=== PATIENT | male | born 1950 | race Two or more races ===

== ENCOUNTER 2022-01-18 18:04 | Inpatient (IN) | payer MEDICARE, OTHER ==
[~2022-01-18] VITALS: Ht 167.6 cm; Wt 62.1 kg
[~2022-01-18 18:04] MED LIST: ALBU18HF2 IH; ATOR20TA PO; FINA5TAB3 PO; FLUT1DIS3 INH; FOLI1TAB16 PO; LACT10SO69 PO; METO50TA16 PO; MIRT-91 PO; MYRBETRIQ PO; OLME1TAB34 PO; QUET50TA PO; RIFA550T PO; SPIR25TA PO; THIA100T13 PO; [UNRECOGNIZED DRUG - CODE] PO
--- NOTE | 2022-01-18 18:14 | NUR ---
TO ER BED 12. BIB PA [facility], SOB, PRODUCTIVE COUGH, SENT TO R/O PNEUMONIA. PT IS ON 5L NC. ATTACHED TO MONITOR. A&OX4. AWAITING MD GARCIA.
--- NOTE | 2022-01-18 18:40 | NUR ---
X RAY AT BEDSIDE
--- NOTE | 2022-01-18 18:43 | NUR ---
GIOVANI (SON) [phone] JD () [phone]
--- NOTE | 2022-01-18 18:44 | NUR ---
IV ESTABLISHED R AC 20G. LABS DRAWN AND COLLECTED AT BEDSIDE.
[2022-01-18 19:04] LABS: CARBON DIOXIDE 25 mmol/L (21-32); CHLORIDE 102 mmol/L (98-107); CREATININE 1.5 mg/dL (0.6-1.3); GLUCOSE 110 mg/dL (74-106); POTASSIUM 4.2 mmol/L (3.5-5.1); SODIUM SERUM 136 mmol/L (136-145); UREA NITROGEN, BLOOD 40 mg/dL (7-18)
--- NOTE | 2022-01-18 19:11 | NUR ---
KADEN COLLECTED AND SENT
[2022-01-18] MEDS ORDERED: NUTR250L50 GT (19:15)
[2022-01-18] MEDS ORDERED: MAGN400O6 GT (19:15)
[2022-01-18] MEDS ORDERED: NA P133E RC (19:15)
[2022-01-18] MEDS ORDERED: ZOLP5TAB2 GT (19:15)
[2022-01-18] MEDS ORDERED: CRAN3875 GT (19:15)
[2022-01-18] MEDS ORDERED: LORA-259 GT (19:15)
[2022-01-18] MEDS ORDERED: VALP250S4 GT (19:15)
[2022-01-18] MEDS ORDERED: SENN-261 GT (19:15)
[2022-01-18] MEDS ORDERED: BUDE180A IH (19:15)
[2022-01-18] MEDS ORDERED: LEVA15HF4 IH ×2 (19:15)
[2022-01-18] MEDS ORDERED: CALC1TAB30 GT (19:15)
[2022-01-18] MEDS ORDERED: DOXA2TAB GT (19:15)
[2022-01-18] MEDS ORDERED: SCOP1PAT11 TD (19:15)
[2022-01-18] MEDS ORDERED: OLAN2.5T3 GT (19:15)
[2022-01-18] MEDS ORDERED: ACET-868 GT (19:15)
[2022-01-18] MEDS ORDERED: LEVE100S GT (19:15)
[2022-01-18] MEDS ORDERED: FURO-145 GT (19:15)
[2022-01-18] MEDS ORDERED: APIX5TAB GT (19:15)
[2022-01-18] MEDS ORDERED: IPRA12.9 IH (19:15)
[2022-01-18] MEDS ORDERED: MULT-447 GT (19:15)
[2022-01-18] MEDS ORDERED: BISA10SU11 RC (19:15)
[2022-01-18] MEDS ORDERED: BUSP5TAB3 GT (19:15)
[2022-01-18] MEDS ORDERED: METO5SOL2 GT (19:15)
[2022-01-18] MEDS ORDERED: METH10TA80 GT (19:15)
[2022-01-18 19:17] LABS: ALANINE AMINOTRANSFERASE 26 U/L (12-78); ALBUMIN 2.6 g/dL (3.4-5.0); ALKALINE PHOSPHATASE 116 U/L (46-116); ASPARTATE AMINOTRANSFERASE 25 U/L (15-37); BILIRUBIN,DIRECT 0.1 mg/dL (0.0-0.2); BILIRUBIN,TOTAL 0.2 mg/dL (0.2-1.0); TOTAL PROTEIN, SERUM 9.4 g/dL (6.4-8.2)
[2022-01-18] MEDS ORDERED: CEFTRIAXONE 1GM BAG (ER ONLY) 1 GM/50 ML PIGGYBACK IV ONE (19:30)
[2022-01-18] MEDS ORDERED: AZITHROMYCIN 500 MG in IV D5W 250 ML IV ONE (19:30)
[2022-01-18 19:50] LABS: ABG BASE EXCESS 0.5 mmol/L; ABG PCO2 28.5 mmHg (35.0-45.0); ABG PH 7.515 (7.350-7.450); ABG PO2 73.3 mmHg (75.0-100.0); SITE, ABG Right Radial
[2022-01-18 19:51] LABS: COHb 0.7 % (0.5-1.5); O2Hb 95.6 % (94.0-97.0); VENT MODE, BG 5L NASAL CANNULA
[2022-01-18 19:53] LABS: HEMATOCRIT 35 % (39-51); HEMOGLOBIN 11.6 g/dL (13.5-17.5); LYMPHOCYTES # (AUTO) 0.9 K/uL (0.8-4.8); LYMPHOCYTES % (AUTO) 5.2 % (20.0-44.0); MEAN CORPUSCULAR HGB CONC 33 g/dl (31.0-36.0); MEAN CORPUSCULAR VOLUME 90 fL (80-96); MONOCYTES # (AUTO) 1.4 K/uL (0.1-1.30); MONOCYTES % (AUTO) 7.7 % (2.0-12.0); NEUTROPHILS # (AUTO) 15.3 K/uL (1.8-8.9); NEUTROPHILS % (AUTO) 87.1 % (43.0-81.0); PLATELET COUNT (AUTO) 382 K/uL (150-450); RED BLOOD CELL COUNT(AUTO) 3.91 MIL/uL (4.5-6.0); WHITE BLOOD COUNT (AUTO) 17.6 K/uL (4.3-11.0)
--- NOTE | 2022-01-18 19:54 | NUR ---
MRSA SWAB COLLECTED AND SENT TO LAB. PATIENT'S BELONGINGS LIST DONE.
[2022-01-18] MEDS ORDERED: LORAZEPAM INJ 2 MG/ML VIAL IV ONE (20:00)
[2022-01-18] MEDS ORDERED: CEFTRIAXONE 1GM BAG (ER ONLY) 50 ML IV ONE (20:30)
[2022-01-18] MEDS ORDERED: AZITHROMYCIN 500 MG VIAL ONE (20:31)
[2022-01-18] MEDS ORDERED: MAG HYDROX/AL HYDROX/SIMETH 30 ML UDC GT PRN (21:30)
[2022-01-18] MEDS ORDERED: MAGNESIUM HYDROXIDE 30 ML UDC GT PRN (21:30)
[2022-01-18] MEDS ORDERED: MAGNESIUM HYDROXIDE 30 ML UDC PO PRN (21:30)
[2022-01-18] MEDS ORDERED: IV NS 0.9% 1,000 ML IV PRN (21:30)
[2022-01-18] MEDS ORDERED: BISACODYL SUPP (10 MG) 10 MG/SUPP.RECT SUPP.RECT RC PRN (21:30)
[2022-01-18] MEDS ORDERED: NA PHOS,M-B/NA PHOS,DI-BA 1 EA ENEMA RC PRN (21:30)
[2022-01-18] MEDS ORDERED: JEVITY 1.2 CAL 1,000 ML BOTTLE GT PRN (21:30)
[2022-01-18] MEDS ORDERED: ZOLPIDEM TARTRATE 5 MG TABLET PO PRN (21:30)
[2022-01-18] MEDS ORDERED: ACETAMINOPHEN 325 MG TABLET PO PRN (21:30)
[2022-01-18] MEDS ORDERED: ONDANSETRON HCL/PF 4 MG/2 ML VIAL IVP PRN (21:30)
[2022-01-18] MEDS ORDERED: Z GUARD REMEDY 4 OZ OINT TP PRN (21:30)
[2022-01-18] MEDS ORDERED: ACETAMINOPHEN 325 MG TABLET MC PRN (21:30)
[2022-01-18] MEDS ORDERED: ZOLPIDEM TARTRATE 5 MG TABLET GT PRN (21:30)
--- NOTE | 2022-01-18 22:02 | NUR ---
REPORT GIVEN TO 3W RNCECELIA
--- NOTE | 2022-01-18 22:20 | NUR ---
PATIENT BEING TRANSFERRED TO [facility]
[2022-01-18 22:30] VITALS: BP 124/73
[2022-01-19] VITALS: BP 105/62
[2022-01-19] MEDS ORDERED: PIPERACILLIN /TAZOBACTAM 3.375 G in IV D5W 50 ML IV SCH ×2
[2022-01-19] MEDS ORDERED: PIPERACILLIN /TAZOBACTAM 3.375 G VIAL IV ONE (00:06)
[2022-01-19] MEDS: ZOSYN IVPB 3.375 G in IV D5W 50ml IV SCH ×2 (00:40→05:30)
[2022-01-19] MEDS ORDERED: IPRATROPIUM NEB FS 0.5 MG/2.5 ML AMPUL.NEB NEB SCH (01:30)
[2022-01-19] MEDS ORDERED: FUROSEMIDE 20 MG/2 ML VIAL IV ONE (02:00)
[2022-01-19] MEDS ORDERED: VANCOMYCIN 1.25 GM in IV D5W 250 ML IV ONE (03:00)
[2022-01-19] MEDS ORDERED: VANCOMYCIN 1 GM VIAL ONE ×2 (03:20→03:22)
[2022-01-19 03:43] VITALS: BP 98/56
[2022-01-19 04:00] VITALS: BP 98/56
--- NOTE | 2022-01-19 04:13 | NUR ---
CLOSING NOTES: ADMITTED 01/18/22 @ 22:20 FROM THE ER EYES OPEN NON VERBAL MAKING GRINTING SOUNDS NON FOLLOWING DIRECTIONS DIAPER ON INCONTINENT URINE, WITH THE [facility]IST [facility] WORKER CLEANED AND REDIAPERED SKIN INTACT HEEL CLEAR SCRUM CLEAR ALL CHASTITY AREAS CLEAR PRODUCTIVE COUGH STRONG COUGH 02 2LITERS N/C SATS 96% NOTED LEGS RIDGET AND BENT CLOSE TO HIS BODY ASPIRATION PRECAUTIONS HOB ELEVATED PEG FDG STARTED NO EDEMA
[2022-01-19] MEDS: METOCLOPRAMIDE HCL 10 MG/10 ML UDC GT SCH ×3 (05:03→21:43)
[2022-01-19] MEDS: LEVALBUTEROL TARTRATE XX SCH ×2 (05:30)
[2022-01-19 07:05] LABS: CALCIUM, SERUM 8.6 mg/dL (8.5-10.1); CARBON DIOXIDE 24 mmol/L (21-32); CHLORIDE 103 mmol/L (98-107); CREATININE 1.6 mg/dL (0.6-1.3); GLUCOSE 118 mg/dL (74-106); MAGNESIUM 2.1 mg/dL (1.8-2.4); PHOSPHORUS 2.5 mg/dL (2.5-4.9); POTASSIUM 3.5 mmol/L (3.5-5.1); SODIUM SERUM 138 mmol/L (136-145); UREA NITROGEN, BLOOD 38 mg/dL (7-18)
[2022-01-19 07:07] LABS: BASOPHILS % (AUTO) 0.3 % (0.0-2.0); EOSINOPHILS % (AUTO) 0.1 % (0.0-6.0); HEMATOCRIT 33 % (39-51); HEMOGLOBIN 10.8 g/dL (13.5-17.5); LYMPHOCYTES # (AUTO) 2.2 K/uL (0.8-4.8); MEAN CORPUSCULAR HGB CONC 33 g/dl (31.0-36.0); MEAN CORPUSCULAR VOLUME 91 fL (80-96); MONOCYTES # (AUTO) 0.9 K/uL (0.1-1.30); MONOCYTES % (AUTO) 6.2 % (2.0-12.0); NEUTROPHILS # (AUTO) 10.9 K/uL (1.8-8.9); NEUTROPHILS % (AUTO) 77.4 % (43.0-81.0); PLATELET COUNT (AUTO) 361 K/uL (150-450); RED BLOOD CELL COUNT(AUTO) 3.58 MIL/uL (4.5-6.0)
--- NOTE | 2022-01-19 07:10 | NUR ---
SLATE ROOFER HELPER OPENING NOTE: RECEIVED PATIENT IN BED, AWAKE, A/O X 1. ABLE TO MAKE SIMPLE NEEDS KNOWN. NO COMPLAINTS OF PAIN/DISCOMFORT AT THIS TIME. ON 2L NC, BREATHING EVEN AND UNLABORED.ON TELE MONITOR W/ CURRENT READING OF NSR, BORDERLINE 1ST DEGREE AV BLOCK WITH PAC'S AND HR OF 88 BPM. MD AWARE. PT. HAS PEG TUBE LOCATED IN UPPER MID ABDOMEN WITH JEVITY 1.2 RUNNING AT 60 ML/HR. 5 ML OF RESIDUAL NOTED. FLUSHING WELL. DRESSING C/D/I. IV ACCESS ON RIGHT AC #20G, PATENT AND FLUSHING WELL, SALINE LOCKED. NO S/S OF PHLEBITIS OR INFILTRATION. PT. UNABLE TO AMBULATE AND ON BED REST. INCONTINENT AND ON DIAPER. SKIN INTACT. SAFETY, PRESSURE ULCER, ASPIRATION AND FALL PRECAUTIONS IN PLACE: BED LOCKED AND IN LOWEST POSITION, BED ALARM ON, HOB ELEVATED AT 40 DEGREES, CALL LIGHT AND BELONGINGS WITHIN EASY REACH, WILL TURN AND REPOSITION AT LEAST Q2H. WILL CONTINUE TO MONITOR PT. FOR ANY CHANGES.
[2022-01-19] MEDS: ALBUTEROL FS 2.5 MG/3 ML VIAL.NEB NEB SCH ×3 (07:35→19:55)
[2022-01-19] MEDS ORDERED: ALBUTEROL FS 2.5 MG/0.5 ML VIAL.NEB NEB SCH (07:35)
[2022-01-19] MEDS: IPRATROPIUM NEB FS 0.5 MG/2.5 ML AMPUL.NEB NEB SCH ×3 (07:35→19:55)
[2022-01-19 08:00] VITALS: BP 108/68
[2022-01-19] MEDS ORDERED: ALBUTEROL FS 2.5 MG/0.5 ML VIAL.NEB IH PRN (08:00)
[2022-01-19] MEDS ORDERED: Medication Not On Formulary EA (Cran/Vitc/Mannose/Inulin/Brom (Uti-Stat Liquid) 3,875 MG GT SCH ×2 (09:00)
[2022-01-19] MEDS: SCOPOLAMINE PATCH 1 MG/72HR TD SCH (09:11)
[2022-01-19] MEDS: CALCIUM CARB 600MG /VIT D 1 EACH TABLET GT SCH (09:12)
[2022-01-19] MEDS: METHIMAZOLE (5MG) 5 MG TABLET GT SCH ×2 (09:12→18:17)
[2022-01-19] MEDS: MULTIVIT W/MINERALS 1 TAB TABLET GT SCH (09:12)
[2022-01-19] MEDS: VALPROIC ACID 250 MG/5 ML UDC GT SCH ×3 (09:12→18:17)
[2022-01-19] MEDS: SENNOSIDES 8.6 MG TABLET GT SCH ×2 (09:13→18:18)
[2022-01-19] MEDS: LEVETIRACETAM SOL (5 ML) 100 MG/ML UDC GT SCH ×2 (09:13→18:17)
[2022-01-19] MEDS: OLANZAPINE 2.5 MG TABLET GT SCH ×3 (09:13→18:18)
[2022-01-19] MEDS: APIXABAN 5 MG TABLET GT SCH ×2 (09:14→18:18)
[2022-01-19] MEDS: busPIRone 5 MG TABLET GT SCH ×3 (09:14→18:18)
[2022-01-19] MEDS: PIPERACILLIN /TAZOBACTAM 3.375 G in IV D5W 100 ML IV SCH ×2 (10:35→16:17)
[2022-01-19 11:19] LABS: BILIRUBIN,URINE NEGATIVE (NEGATIVE); COLOR,URINE YELLOW (YELLOW); LEUKOCYTE ESTERASE ,URINE TRACE (NEGATIVE); NITRITE, URINE NEGATIVE (NEGATIVE); PH,URINE 7.5 (5.0-8.0); PROTEIN,URINE NEGATIVE (NEGATIVE); UGLUCOSE NEGATIVE (NEGATIVE); UROBILINOGEN,URINE 0.2 EU/dL (0.2)
[2022-01-19 11:31] LABS: BACTERIA,URINE None seen /HPF (None Seen); RBC,URINE 0-2 /HPF (0-2); SQUAMOUS EPITHELIAL CELL,UR Rare /HPF (None Seen)
--- NOTE | 2022-01-19 13:45 | NUR ---
MS RN NOTE: PT. PICKED UP BY [employer] [facility] JUNIOR FOR RIGHT ARM FISTULA PLACEMENT BY DR. WILSON. BP 104/54; MS - 66; R - 18 BPM; SPO2 - 99% ON 2L NC; TEMP - 98.1 F; LAST BG - 102 MG/DL. Addendum: 01/19/22 at 1443 by ADAM ONTIVEROS RN PLS. DISREGARD THIS NOTE. THIS IS FOR ANOTHER PT.
[2022-01-19 16:10] VITALS: BP 99/56
--- NOTE | 2022-01-19 16:31 | NUR ---
RT Breathing tx. not given. Pt was asleep @ 0735
[2022-01-19] MEDS: BUDESONIDE RESPULE INH 0.5 MG/2 ML AMPUL.NEB NEB SCH (17:59)
[2022-01-19] MEDS: JEVITY 1.2 CAL 1,000 ML BOTTLE GT PRN (18:58)
--- NOTE | 2022-01-19 19:17 | NUR ---
MS RN CLOSING NOTE: PATIENT REMAINS IN BED, AWAKE, A/O X 1. ABLE TO VERBALIZE SIMPLE NEEDS KNOWN. NO COMPLAINTS OF PAIN/DISCOMFORT AT THIS TIME. ON 2L NC, WITH NO S/S OF RESPIRATORY DISTRESS. PT. HAS PEG TUBE LOCATED IN UPPER MID ABDOMEN WITH JEVITY 1.2 RUNNING AT 60 ML/HR. 3 ML OF RESIDUAL NOTED AT THIS TIME. FLUSHING WELL. DRESSING C/D/I. IV ACCESS ON RIGHT FA #22G, PATENT AND FLUSHING WELL, ZOSYN STILL RUNNING AT 25 ML/HR. NEW IV LINE WRAPPED IN KERLIX. PT. WAS ALSO ON MITTENS D/T CONFUSION AND PULLING HIS IV LINE. ALL LESS RESTRICTIVE MEASURES WERE TRIED BUT PT. STILL TRIES TO PULL OUT HIS IV. RECHECKING TISSUE PERFUSION AT LEAST Q2H. NO S/S OF PHLEBITIS OR INFILTRATION ON IV SITE NOTED. PT. UNABLE TO AMBULATE AND ON BED REST. INCONTINENT AND ON WATER-RESISTANT PADS. SKIN INTACT AND CLEANED PRN. SAFETY, PRESSURE ULCER, ASPIRATION AND FALL PRECAUTIONS MAINTAINED: BED LOCKED AND IN LOWEST POSITION, BED ALARM ON, HOB ELEVATED AT 40 DEGREES, CALL LIGHT AND BELONGINGS WITHIN EASY REACH, TURNED AND REPOSITIONED Q2H. WILL ENDORSE CONTINUITY OF CARE TO TILE HELPER RN.
[2022-01-19 20:00] VITALS: BP 106/73
--- NOTE | 2022-01-19 20:51 | NUR ---
MS RN OPENING NOTE PATIENT AWAKE IN BED, A/O X 1, CONFUSED. PT STABLE ON 2 LPM OF OXYGEN VIA NASAL CANNULA, NO S/S OF RESPIRATORY DISTRESS, PT HAS DRY COUGH. PT HAS PEG TUBE LOCATED IN UPPER MID ABDOMEN WITH JEVITY 1.2 RUNNING AT 60 ML/HR. IV ACCESS ON RIGHT FA #22G, PATENT AND FLUSHING WELL, INFUSING ZOSYN AT 25 ML/HR, IV LINE WRAPPED IN KERLIX. PT HAS ON MITTENS D/T CONFUSION AND PULLING HIS IV LINE. PT. SAFETY MEASURES IN PLACE: BED LOCKED IN LOWEST POSITION, BED ALARM ON, HOB ELEVATED AT 40 DEGREES, SIDE RAILS UP X 3, CALL LIGHT AND BELONGINGS WITHIN EASY REACH. WILL CONTINUE TO MONITOR
[2022-01-19] MEDS: DOXAZOSIN MESYLATE (1 MG) 1 MG TABLET GT SCH (21:44)
[2022-01-20] MEDS: PIPERACILLIN /TAZOBACTAM 3.375 G in IV D5W 100 ML IV SCH ×3 (00:31→17:24)
[2022-01-20] MEDS: LORAZEPAM 1 MG TABLET GT PRN ×2 (03:41→09:32)
--- NOTE | 2022-01-20 03:45 | NUR ---
MS RN NOTE PATIENT RESTLESS, HASN'T SLEPT ALL NIGHT, MOVING A LOT IN BED, YELLING OUT. ATIVAN 0.5 MG GIVEN VIA GTUBE, VITAL SIGNS WNL. WILL CONTINUE TO MONITOR PATIENT
[2022-01-20 03:47] VITALS: BP 126/78
[2022-01-20] MEDS: VANCOMYCIN 1 GM in IV D5W 250 ML IV SCH (03:57)
[2022-01-20] MEDS: METOCLOPRAMIDE HCL 10 MG/10 ML UDC GT SCH ×3 (05:50→21:08)
[2022-01-20 06:54] LABS: BASOPHILS # (AUTO) 0.1 K/uL (0.0-0.2); BASOPHILS % (AUTO) 0.7 % (0.0-2.0); EOSINOPHILS % (AUTO) 0.2 % (0.0-6.0); HEMATOCRIT 32 % (39-51); HEMOGLOBIN 10.6 g/dL (13.5-17.5); LYMPHOCYTES # (AUTO) 0.6 K/uL (0.8-4.8); LYMPHOCYTES % (AUTO) 6.8 % (20.0-44.0); MEAN CORPUSCULAR HGB CONC 34 g/dl (31.0-36.0); MEAN CORPUSCULAR VOLUME 90 fL (80-96); MONOCYTES # (AUTO) 0.4 K/uL (0.1-1.30); MONOCYTES % (AUTO) 4.9 % (2.0-12.0); NEUTROPHILS # (AUTO) 7.5 K/uL (1.8-8.9); NEUTROPHILS % (AUTO) 87.4 % (43.0-81.0); PLATELET COUNT (AUTO) 329 K/uL (150-450); RED BLOOD CELL COUNT(AUTO) 3.52 MIL/uL (4.5-6.0); WHITE BLOOD COUNT (AUTO) 8.6 K/uL (4.3-11.0)
--- NOTE | 2022-01-20 07:10 | NUR ---
ms rn received on bed,sleeping,not in any form of distress, respirations even and unlabored,no sob noted, lungs are clear.abdomen soft,positive bowel sounds,gtube intact w/ feeding,jevity at 60ml/hour, toleated well. w/o residual, mittens on bilateral arms for safety,repositioned for comfort,will monitor patient.
[2022-01-20 07:20] LABS: CALCIUM, SERUM 8.1 mg/dL (8.5-10.1); CARBON DIOXIDE 26 mmol/L (21-32); CHLORIDE 105 mmol/L (98-107); CREATININE 1.7 mg/dL (0.6-1.3); GLUCOSE 120 mg/dL (74-106); MAGNESIUM 1.9 mg/dL (1.8-2.4); PHOSPHORUS 2.3 mg/dL (2.5-4.9); POTASSIUM 3.7 mmol/L (3.5-5.1); SODIUM SERUM 139 mmol/L (136-145); UREA NITROGEN, BLOOD 36 mg/dL (7-18)
[2022-01-20] MEDS: ALBUTEROL FS 2.5 MG/3 ML VIAL.NEB NEB SCH ×3 (07:22→20:03)
[2022-01-20] MEDS: IPRATROPIUM NEB FS 0.5 MG/2.5 ML AMPUL.NEB NEB SCH ×3 (07:22→20:03)
--- NOTE | 2022-01-20 07:37 | NUR ---
MS RN CLOSING NOTE PATIENT SLEEPING IN BED, A/O X 1, CONFUSED. PT STABLE ON 2 LPM OF OXYGEN VIA NASAL CANNULA, NO S/S OF RESPIRATORY DISTRESS, PT COUGHING A LOT THROUGHOUT SHIFT, SUCTIONED PRN. PT HAS G TUBE WITH JEVITY 1.2 RUNNING AT 60 ML/HR. IV ACCESS ON RIGHT FA #22G INTACT AND SALINE LOCKED, IV LINE WRAPPED IN KERLIX. PT HAS BILATERAL MITTENS D/T CONFUSION AND PULLING ON IV LINES. MEDICATIONS GIVEN ORDERED, PT NEEDS MET THROUGHOUT SHIFT, PATIENT TURNED Q2H, HYGIENE CARE PROVIDED. SAFETY MEASURES IN PLACE: BED LOCKED IN LOWEST POSITION, BED ALARM ON, HOB ELEVATED AT 40 DEGREES, SIDE RAILS UP X 3, CALL LIGHT WITHIN EASY REACH. ENDORSED TO DAY SHIFT NURSE FOR CONTINUITY OF CARE
--- NOTE | 2022-01-20 09:00 | NUR ---
ms rn due meds given via g tube,tolerated w/o residual.
[2022-01-20] MEDS: SENNOSIDES 8.6 MG TABLET GT SCH ×2 (09:13→17:31)
[2022-01-20] MEDS: OLANZAPINE 2.5 MG TABLET GT SCH ×3 (09:14→17:31)
[2022-01-20] MEDS: VALPROIC ACID 250 MG/5 ML UDC GT SCH ×3 (09:14→17:31)
[2022-01-20] MEDS: METHIMAZOLE (5MG) 5 MG TABLET GT SCH ×2 (09:14→17:31)
[2022-01-20] MEDS: LEVETIRACETAM SOL (5 ML) 100 MG/ML UDC GT SCH ×2 (09:14→17:31)
[2022-01-20] MEDS: MULTIVIT W/MINERALS 1 TAB TABLET GT SCH (09:14)
[2022-01-20] MEDS: CALCIUM CARB 600MG /VIT D 1 EACH TABLET GT SCH (09:32)
[2022-01-20] MEDS: busPIRone 5 MG TABLET GT SCH ×3 (09:32→17:31)
[2022-01-20] MEDS: APIXABAN 5 MG TABLET GT SCH ×2 (09:33→17:32)
[2022-01-20] MEDS: BUDESONIDE RESPULE INH 0.5 MG/2 ML AMPUL.NEB NEB SCH ×2 (11:08→16:27)
--- NOTE | 2022-01-20 15:00 | NUR ---
ms rn cannot do ct abdomen,patient is uncooperative.
[2022-01-20] MEDS: ACETYLCYSTEINE 10% SOLN 400 MG/4 ML VIAL NEB SCH (16:27)
[2022-01-20] MEDS ORDERED: NEUTRA PHOS 1 POWD.PACKET GT ONE (17:00)
--- NOTE | 2022-01-20 18:13 | NUR ---
ms rn on bed, all needs attended.no distress noted.
--- NOTE | 2022-01-20 19:33 | NUR ---
RN OPENING NOTE PATIENT AWAKE IN BED. A/OX1. NO S/S OF DISTRESS, BREATHING W/O DIFFICULTY ON 2L NC. RFA #22 SL INTACT AND PATENT. JEVITY 1.2 @ 60ML/HR. SAFETY MEASURES IN PLACE: BED LOCKED AND AT LOWEST POSITION, RAILS UP X2, CALL DUNN WITHIN REACH. WILL CONTINUE TO MONITOR PATIENT.
[2022-01-20] MEDS ORDERED: IV NS 0.9% 1,000 ML IV ONE (21:00)
[2022-01-20] MEDS: DOXAZOSIN MESYLATE (1 MG) 1 MG TABLET GT SCH (21:08)
[2022-01-21] MEDS: ACETYLCYSTEINE 10% SOLN 400 MG/4 ML VIAL NEB SCH ×4 (00:07→23:35)
[2022-01-21] MEDS: PIPERACILLIN /TAZOBACTAM 3.375 G in IV D5W 100 ML IV SCH ×4 (00:47→23:46)
[2022-01-21] MEDS: VANCOMYCIN 1 GM in IV D5W 250 ML IV SCH (03:31)
[2022-01-21] MEDS: METOCLOPRAMIDE HCL 10 MG/10 ML UDC GT SCH ×3 (05:22→21:39)
[2022-01-21 06:29] LABS: BASOPHILS # (AUTO) 0.1 K/uL (0.0-0.2); BASOPHILS % (AUTO) 0.8 % (0.0-2.0); EOSINOPHILS % (AUTO) 1.2 % (0.0-6.0); HEMATOCRIT 33 % (39-51); HEMOGLOBIN 10.8 g/dL (13.5-17.5); LYMPHOCYTES # (AUTO) 0.8 K/uL (0.8-4.8); LYMPHOCYTES % (AUTO) 11.1 % (20.0-44.0); MEAN CORPUSCULAR HGB CONC 33 g/dl (31.0-36.0); MEAN CORPUSCULAR VOLUME 90 fL (80-96); MONOCYTES # (AUTO) 0.4 K/uL (0.1-1.30); MONOCYTES % (AUTO) 5.8 % (2.0-12.0); NEUTROPHILS # (AUTO) 6.1 K/uL (1.8-8.9); NEUTROPHILS % (AUTO) 81.1 % (43.0-81.0); PLATELET COUNT (AUTO) 333 K/uL (150-450); RED BLOOD CELL COUNT(AUTO) 3.64 MIL/uL (4.5-6.0); WHITE BLOOD COUNT (AUTO) 7.5 K/uL (4.3-11.0)
--- NOTE | 2022-01-21 06:42 | NUR ---
RN CLOSING NOTE PATIENT ASLEEP IN BED. A/OX1. NO S/S OF DISTRESS, BREATHING W/O DIFFICULTY ON 2L NC. RFA #22 INTACT AND PATENT W/ NS 70ML/HR. JEVITY 1.2 @ 60ML/HR. SAFETY MEASURES IN PLACE: BED LOCKED AND AT LOWEST POSITION, RAILS UP X2, CALL DUNN WITHIN REACH. WILL ENDORSE TO NEXT SHIFT FOR MAKENNA.
--- NOTE | 2022-01-21 07:15 | NUR ---
ms rn received on bed, sleeping,not in any form of distress, respirations even and unlabored,no sob noted, lungs are clear,abdomen soft,positive bowel sounds,denies pain at this time, will monitor patient.
[2022-01-21 07:21] LABS: CARBON DIOXIDE 24 mmol/L (21-32); CHLORIDE 105 mmol/L (98-107); CREATININE 1.6 mg/dL (0.6-1.3); GLUCOSE 162 mg/dL (74-106); PHOSPHORUS 3.3 mg/dL (2.5-4.9); POTASSIUM 3.9 mmol/L (3.5-5.1); SODIUM SERUM 139 mmol/L (136-145); UREA NITROGEN, BLOOD 29 mg/dL (7-18)
[2022-01-21] MEDS: IPRATROPIUM NEB FS 0.5 MG/2.5 ML AMPUL.NEB NEB SCH ×3 (07:35→19:52)
[2022-01-21] MEDS: ALBUTEROL FS 2.5 MG/3 ML VIAL.NEB NEB SCH ×3 (07:35→19:52)
[2022-01-21 08:00] VITALS: BP 125/75
--- NOTE | 2022-01-21 08:00 | NUR ---
ms rn g tube intact,running at60ml/hour,tolerated w/o residual.
[2022-01-21] MEDS: LEVETIRACETAM SOL (5 ML) 100 MG/ML UDC GT SCH ×2 (09:42→16:57)
[2022-01-21] MEDS: MULTIVIT W/MINERALS 1 TAB TABLET GT SCH (09:42)
[2022-01-21] MEDS: VALPROIC ACID 250 MG/5 ML UDC GT SCH ×3 (09:42→16:57)
[2022-01-21] MEDS: OLANZAPINE 2.5 MG TABLET GT SCH ×3 (09:42→16:58)
[2022-01-21] MEDS: METHIMAZOLE (5MG) 5 MG TABLET GT SCH ×2 (09:42→16:57)
[2022-01-21] MEDS: busPIRone 5 MG TABLET GT SCH ×3 (09:43→16:58)
[2022-01-21] MEDS: SENNOSIDES 8.6 MG TABLET GT SCH ×2 (09:43→16:58)
[2022-01-21] MEDS: CALCIUM CARB 600MG /VIT D 1 EACH TABLET GT SCH (09:43)
[2022-01-21] MEDS: BUDESONIDE RESPULE INH 0.5 MG/2 ML AMPUL.NEB NEB SCH ×2 (09:44→16:44)
[2022-01-21] MEDS: APIXABAN 5 MG TABLET GT SCH ×2 (09:46→17:03)
[2022-01-21] MEDS: JEVITY 1.2 CAL 1,000 ML BOTTLE GT PRN (14:13)
[2022-01-21 16:00] VITALS: BP 142/58
--- NOTE | 2022-01-21 16:59 | NUR ---
RT NOTE PATIENT NT SUCTIONED. SUCTIONED LARGE AMOUNTS OF WHITE/YELLOW SECRETIONS. NO SOB NOTED AT THIS TIME. WILL CONTINUE TO MONITOR.
--- NOTE | 2022-01-21 18:58 | NUR ---
ms rn on bed,no distress noted,all needs attended.
--- NOTE | 2022-01-21 19:45 | NUR ---
RN OPENING NOTES RECEIVED PT IN BED, ASLEEP, AWAKENS TO TACTILE STIMULI. AOx1. ON NC 2LPM AND TOLERATING WELL. NO SOB NOTED. NO S/SX OF RESPIRATORY DISTRESS NOTED. IV ACCESS IN RFA #22H. IV IS INTACT, PATENT, AND FLUSHING WELL. G-TUBE WITH JEVITY 1.2 @ 60 ML/HR SAFETY PRECAUTIONS IN PLACE: BED IN LOWEST, LOCKED POSITION, SIDERAILS UPx2, AND BRAKES ON. TABLE AND CALL LIGHT WITHIN REACH. WILL CONTINUE TO MONITOR.
[2022-01-21 20:00] VITALS: BP 110/63
[2022-01-21] MEDS: DOXAZOSIN MESYLATE (1 MG) 1 MG TABLET GT SCH (21:18)
--- NOTE | 2022-01-21 22:07 | NUR ---
RT Pt recvd awake on 3 lpm NC, neb tx given and nickie well, no SOB or respiratory distress noted at this time.
[2022-01-22] MEDS: VANCOMYCIN 1 GM in IV D5W 250 ML IV SCH (03:18)
[2022-01-22] MEDS: METOCLOPRAMIDE HCL 10 MG/10 ML UDC GT SCH ×3 (05:16→20:53)
[2022-01-22] MEDS: JEVITY 1.2 CAL 1,000 ML BOTTLE GT PRN (06:35)
[2022-01-22 06:43] LABS: BASOPHILS % (AUTO) 0.7 % (0.0-2.0); CALCIUM, SERUM 7.9 mg/dL (8.5-10.1); CARBON DIOXIDE 27 mmol/L (21-32); CHLORIDE 104 mmol/L (98-107); CREATININE 1.5 mg/dL (0.6-1.3); EOSINOPHILS % (AUTO) 5.9 % (0.0-6.0); GLUCOSE 157 mg/dL (74-106); HEMATOCRIT 30 % (39-51); HEMOGLOBIN 10.2 g/dL (13.5-17.5); LYMPHOCYTES # (AUTO) 1.3 K/uL (0.8-4.8); LYMPHOCYTES % (AUTO) 16.8 % (20.0-44.0); MEAN CORPUSCULAR HGB CONC 34 g/dl (31.0-36.0); MEAN CORPUSCULAR VOLUME 90 fL (80-96); MONOCYTES # (AUTO) 0.6 K/uL (0.1-1.30); MONOCYTES % (AUTO) 7.9 % (2.0-12.0); NEUTROPHILS # (AUTO) 5.1 K/uL (1.8-8.9); NEUTROPHILS % (AUTO) 68.7 % (43.0-81.0); PHOSPHORUS 3.2 mg/dL (2.5-4.9); PLATELET COUNT (AUTO) 328 K/uL (150-450); POTASSIUM 3.9 mmol/L (3.5-5.1); RED BLOOD CELL COUNT(AUTO) 3.38 MIL/uL (4.5-6.0); SODIUM SERUM 138 mmol/L (136-145); UREA NITROGEN, BLOOD 27 mg/dL (7-18); WHITE BLOOD COUNT (AUTO) 7.5 K/uL (4.3-11.0)
--- NOTE | 2022-01-22 06:48 | NUR ---
RN CLOSING NOTES PT IN BED, ASLEEP, AWAKENS TO TACTILE STIMULI. AOx2. ON NC 2LPM AND TOLERATING WELL. NO SOB NOTED. NO S/SX OF RESPIRATORY DISTRESS NOTED. IV ACCESS IN RFA #22G. IV IS INTACT, PATENT, AND FLUSHING WELL. G-TUBE WITH JEVITY 1.2 @ 60 ML/HR. ALL ORDERS CARRIED OUT. ALL NEEDS MET. PT KEPT CLEAN AND DRY. SAFETY PRECAUTIONS IN PLACE: BED IN LOWEST, LOCKED POSITION, SIDERAILS UPx2, AND BRAKES ON. TABLE AND CALL LIGHT WITHIN REACH. WILL ENDORSE TO ONCOMING SHIFT FOR MAKENNA.
--- NOTE | 2022-01-22 07:30 | NUR ---
RN OPENING NOTE REPORT RECEIVED PATIENT ASLEEP A&OX1 LAYING IN THE BED. ALL VSS. PATIENT SATTING AT 94% ON 2L NC. SB. DIET JEVITY 1.2 @60ML/HR.. IV RFA #22G SALINE LOCK PATENT AND INTACT. ALL SAFETY FALL PRECAUTIONS IN PLACE BED LOCK ON, BED ALARM ON, BED IN LOWEST POSITION, SIDE RAILS UP, CALL LIGHT WITHIN REACH. WILL CONTINUE TO MONITOR.
[2022-01-22] MEDS: ACETYLCYSTEINE 10% SOLN 400 MG/4 ML VIAL NEB SCH ×3 (07:55→22:37)
[2022-01-22] MEDS: IPRATROPIUM NEB FS 0.5 MG/2.5 ML AMPUL.NEB NEB SCH ×3 (07:55→19:12)
[2022-01-22] MEDS: ALBUTEROL FS 2.5 MG/3 ML VIAL.NEB NEB SCH ×3 (07:55→19:06)
[2022-01-22 08:00] VITALS: BP 139/77
[2022-01-22] MEDS: SCOPOLAMINE PATCH 1 MG/72HR TD SCH (09:50)
[2022-01-22] MEDS: LEVETIRACETAM SOL (5 ML) 100 MG/ML UDC GT SCH ×2 (09:51→17:35)
[2022-01-22] MEDS: CALCIUM CARB 600MG /VIT D 1 EACH TABLET GT SCH (09:51)
[2022-01-22] MEDS: METHIMAZOLE (5MG) 5 MG TABLET GT SCH ×2 (09:51→17:31)
[2022-01-22] MEDS: busPIRone 5 MG TABLET GT SCH ×3 (09:51→17:31)
[2022-01-22] MEDS: APIXABAN 5 MG TABLET GT SCH ×2 (09:53→17:35)
[2022-01-22] MEDS: VALPROIC ACID 250 MG/5 ML UDC GT SCH ×3 (09:55→17:32)
[2022-01-22] MEDS: MULTIVIT W/MINERALS 1 TAB TABLET GT SCH (09:55)
[2022-01-22] MEDS: SENNOSIDES 8.6 MG TABLET GT SCH ×2 (09:55→17:31)
[2022-01-22] MEDS: OLANZAPINE 2.5 MG TABLET GT SCH ×3 (09:55→17:31)
[2022-01-22] MEDS: PIPERACILLIN /TAZOBACTAM 3.375 G in IV D5W 100 ML IV SCH ×3 (09:56→23:30)
[2022-01-22] MEDS: BUDESONIDE RESPULE INH 0.5 MG/2 ML AMPUL.NEB NEB SCH (10:23)
--- NOTE | 2022-01-22 11:28 | NUR ---
PATIENT FOUND SLEEPING ON 2 L NC. PATIENT REMAIN STABLE AND NO DISTRESS NOTED. PATIENT TOLERATE TX WELL Addendum: 01/22/22 at 1129 by ELOY GARZA RT Amended: Links added.
--- NOTE | 2022-01-22 15:03 | NUR ---
patient is naso suctioned with minimal secretions. Patient is very agitated with lot of movements. no complications with small bleeding. Addendum: 01/22/22 at 1505 by ELOY GARZA RT Amended: Links added.
[2022-01-22 16:08] VITALS: BP 117/69
--- NOTE | 2022-01-22 19:13 | NUR ---
RT Recvd pt on 3 lpm NC, neb tx given and nickie well.Spo2 >92%. No SOB or respiratory distress noted at this time.
--- NOTE | 2022-01-22 19:15 | NUR ---
RN CLOSING NOTES PT IN BED, ASLEEP, AWAKENS TO TACTILE STIMULI. AOx1-2. ON NC 2L. NO SOB NOTED. . IV ACCESS IN RFA #22G. IV IS INTACT, PATENT, AND FLUSHING WELL. G-TUBE WITH JEVITY 1.2 @ 60 ML/HR. ALL ORDERS CARRIED OUT. ALL NEEDS MET. PT KEPT CLEAN AND DRY. SAFETY PRECAUTIONS IN PLACE: BED IN LOWEST POSITION, BED LOCK ON, SIDE RAILS UP, BED ALARM ON, CALL LIGHT WITHIN REACH.
[2022-01-22 20:00] VITALS: BP 125/63
--- NOTE | 2022-01-22 20:18 | NUR ---
RECEIVED PATIENT IN BED, ALERT AND AWAKE, CONFUSED, GARBLED SPEECH, RESTLESS, ROOM AIR, PEG TUBE FEEDING, JEVITY 1.2 AT 60 ML/HR, KEPT HOB ELEVATED, ASPIRATION PRECAUTION, INCONTINENT OF BOWEL AND BLADDER, KEPT SAFE, WILL CONTINUE TO MONITOR.
[2022-01-22] MEDS: DOXAZOSIN MESYLATE (1 MG) 1 MG TABLET GT SCH (22:13)
[2022-01-23] MEDS: JEVITY 1.2 CAL 1,000 ML BOTTLE GT PRN ×2 (00:56→22:21)
[2022-01-23] MEDS: VANCOMYCIN 1 GM in IV D5W 250 ML IV SCH (03:34)
[2022-01-23] MEDS: METOCLOPRAMIDE HCL 10 MG/10 ML UDC GT SCH ×3 (05:09→21:25)
--- NOTE | 2022-01-23 06:19 | NUR ---
ALERT AND AWAKE, 2LPM VIA NC, NO RESPIRATORY DISTRESS, CONFUSED, RESTLESS AT TIMES, PEG TUBE FEEDING, JEVITY 1.2 AT 60 ML/HR, NO RESIDUAL, TOLERATING WELL, INCONTINENT OF BOWEL AND BLADDER, BILATERAL MITTENS, KEPT HOB AT 40 DEGRESS AT ALL TIMES, ASPIRATION PRECAUTION, HOLD OFF IVF FOR NOW, MONITOR LABS, VANCOMYCIN AND ZOSYN, FOR ASPIRATION PNA.
--- NOTE | 2022-01-23 07:35 | NUR ---
MS RN OPENING NOTE RECEIVED PATIENT ASLEEP A&OX1 LAYING IN THE BED. PATIENT 02 SAT AT 98% ON 2L NC. NO S/S OF SOB OR ACUTE DISTRESS AT THE MOMENT. DIET JEVITY 1.2 @60ML/HR. IV ACCESS RFA #22G SALINE LOCK PATENT AND INTACT. ALL SAFETY FALL PRECAUTIONS IN PLACE BED LOCK ON, BED ALARM ON, BED IN LOWEST POSITION, SIDE RAILS UP, CALL LIGHT WITHIN REACH. WILL CONTINUE TO MONITOR.
[2022-01-23] MEDS: IPRATROPIUM NEB FS 0.5 MG/2.5 ML AMPUL.NEB NEB SCH ×3 (07:51→19:28)
[2022-01-23] MEDS: BUDESONIDE RESPULE INH 0.5 MG/2 ML AMPUL.NEB NEB SCH ×2 (07:52→16:43)
[2022-01-23] MEDS: ACETYLCYSTEINE 10% SOLN 400 MG/4 ML VIAL NEB SCH ×3 (07:52→23:58)
[2022-01-23] MEDS: ALBUTEROL FS 2.5 MG/3 ML VIAL.NEB NEB SCH ×3 (07:52→19:28)
[2022-01-23] MEDS: LEVETIRACETAM SOL (5 ML) 100 MG/ML UDC GT SCH ×2 (09:40→16:25)
[2022-01-23] MEDS: VALPROIC ACID 250 MG/5 ML UDC GT SCH ×3 (09:41→16:25)
[2022-01-23] MEDS: OLANZAPINE 2.5 MG TABLET GT SCH ×3 (09:41→16:26)
[2022-01-23] MEDS: METHIMAZOLE (5MG) 5 MG TABLET GT SCH ×2 (09:41→16:25)
[2022-01-23] MEDS: CALCIUM CARB 600MG /VIT D 1 EACH TABLET GT SCH (09:41)
[2022-01-23] MEDS: busPIRone 5 MG TABLET GT SCH ×3 (09:42→16:23)
[2022-01-23] MEDS: SENNOSIDES 8.6 MG TABLET GT SCH ×2 (09:42→16:25)
[2022-01-23] MEDS: MULTIVIT W/MINERALS 1 TAB TABLET GT SCH (09:42)
[2022-01-23] MEDS: PIPERACILLIN /TAZOBACTAM 3.375 G in IV D5W 100 ML IV SCH ×2 (09:44→16:09)
[2022-01-23] MEDS: APIXABAN 5 MG TABLET GT SCH ×2 (09:44→16:24)
[2022-01-23 14:57] LABS: CALCIUM, SERUM 8.4 mg/dL (8.5-10.1); CARBON DIOXIDE 26 mmol/L (21-32); CHLORIDE 103 mmol/L (98-107); CREATININE 1.4 mg/dL (0.6-1.3); GLUCOSE 103 mg/dL (74-106); POTASSIUM 4.5 mmol/L (3.5-5.1); SODIUM SERUM 137 mmol/L (136-145); UREA NITROGEN, BLOOD 28 mg/dL (7-18)
[2022-01-23] MEDS: LORAZEPAM 1 MG TABLET GT PRN (16:30)
--- NOTE | 2022-01-23 19:30 | NUR ---
RN OPENING NOTES RECEIVED PT IN BED, AWAKE, MUMBLING. AOx1-2. ON NC 2LPM AND TOLERATING WELL. NO SOB NOTED. NO S/SX OF RESPIRATORY DISTRESS NOTED. IV ACCESS IN RFA #22G. IV IS INTACT, PATENT, AND FLUSHING WELL. SAFETY PRECAUTIONS IN PLACE: BED IN LOWEST, LOCKED POSITION, SIDERAILS UPx2, AND BRAKES ON. TABLE AND CALL LIGHT WITHIN REACH. WILL CONTINUE TO MONITOR.
--- NOTE | 2022-01-23 19:44 | NUR ---
RT NOTE RECEIVED PT ON 2L NC. PT ASLEEP, BUT DID NOT REFUSE TX. 97% SPO2. NO RESP DISTRESS.
--- NOTE | 2022-01-23 19:48 | NUR ---
MS RN CLOSING NOTES: RECEIVED PATIENT ASLEEP A&OX1 LAYING IN THE BED. RESPONDS TO TACTILE STIMULI. PATIENT 02 SAT AT 96% ON 2L NC. NO S/S OF SOB OR ACUTE DISTRESS AT THE MOMENT. DIET JEVITY 1.2 @60ML/HR. IV ACCESS RFA #22G SALINE LOCK PATENT AND INTACT. ALL SAFETY FALL PRECAUTIONS IN PLACE BED LOCK ON, BED ALARM ON, BED IN LOWEST POSITION, SIDE RAILS UP, CALL LIGHT WITHIN REACH, ENDORSED TO PM SHIFT.
[2022-01-23 20:42] VITALS: BP 125/71
[2022-01-23] MEDS: DOXAZOSIN MESYLATE (1 MG) 1 MG TABLET GT SCH (21:25)
[2022-01-24] MEDS: LORAZEPAM 1 MG TABLET GT PRN ×2 (00:24→17:13)
[2022-01-24] MEDS: PIPERACILLIN /TAZOBACTAM 3.375 G in IV D5W 100 ML IV SCH ×4 (00:24→23:10)
[2022-01-24] MEDS: VANCOMYCIN 1 GM in IV D5W 250 ML IV SCH (03:19)
[2022-01-24] MEDS: METOCLOPRAMIDE HCL 10 MG/10 ML UDC GT SCH ×3 (04:55→21:47)
--- NOTE | 2022-01-24 06:53 | NUR ---
RN CLOSING NOTES PT IN BED, AWAKE, MUMBLING. AOx1-2. ON NC 2LPM AND TOLERATING WELL. NO SOB NOTED. NO S/SX OF RESPIRATORY DISTRESS NOTED. IV ACCESS IN RFA #22G. IV IS INTACT, PATENT, AND FLUSHING WELL. ALL ORDERS CARRIED OUT. ALL NEEDS MET. PT KEPT CLEAN AND DRY. SAFETY PRECAUTIONS IN PLACE: BED IN LOWEST, LOCKED POSITION, SIDERAILS UPx2, AND BRAKES ON. TABLE AND CALL LIGHT WITHIN REACH. WILL ENDORSE TO ONCOMING SHIFT FOR MAKENNA.
[2022-01-24 06:59] LABS: CALCIUM, SERUM 8.3 mg/dL (8.5-10.1); CARBON DIOXIDE 25 mmol/L (21-32); CHLORIDE 103 mmol/L (98-107); CREATININE 1.5 mg/dL (0.6-1.3); GLUCOSE 127 mg/dL (74-106); POTASSIUM 4.1 mmol/L (3.5-5.1); SODIUM SERUM 135 mmol/L (136-145); UREA NITROGEN, BLOOD 29 mg/dL (7-18)
--- NOTE | 2022-01-24 07:30 | NUR ---
RN OPENING NOTES RECEIVED PT IN BED, ASLEEP , AOx1-2. ON NC 2LPM AND TOLERATING WELL. NO SOB OR DISTRESS NOTED AT THIS TIME . IV ACCESS IN RFA #22G. IV IS INTACT, WITH GTUBE FEEDING OF JEVITY 1.2 @60CC /HR , HIGH ON BED AT ALL TIMES, SAFETY PRECAUTIONS IN PLACE: BED IN LOWEST, LOCKED POSITION, SIDERAILS UPx2, BILATERAL MITTENS ON , WILL CONTINUE TO MONITOR.
[2022-01-24] MEDS: MULTIVIT W/MINERALS 1 TAB TABLET GT SCH (08:16)
[2022-01-24] MEDS: VALPROIC ACID 250 MG/5 ML UDC GT SCH ×3 (08:16→16:56)
[2022-01-24] MEDS: LEVETIRACETAM SOL (5 ML) 100 MG/ML UDC GT SCH ×2 (08:16→16:50)
[2022-01-24] MEDS: busPIRone 5 MG TABLET GT SCH ×3 (08:17→16:50)
[2022-01-24] MEDS: SENNOSIDES 8.6 MG TABLET GT SCH ×2 (08:17→16:50)
[2022-01-24] MEDS: CALCIUM CARB 600MG /VIT D 1 EACH TABLET GT SCH (08:17)
[2022-01-24] MEDS: METHIMAZOLE (5MG) 5 MG TABLET GT SCH ×2 (08:17→16:50)
[2022-01-24] MEDS: OLANZAPINE 2.5 MG TABLET GT SCH ×3 (08:17→16:50)
[2022-01-24] MEDS: APIXABAN 5 MG TABLET GT SCH ×2 (08:18→16:52)
[2022-01-24] MEDS: ALBUTEROL FS 2.5 MG/3 ML VIAL.NEB NEB SCH ×3 (08:40→19:30)
[2022-01-24] MEDS: IPRATROPIUM NEB FS 0.5 MG/2.5 ML AMPUL.NEB NEB SCH ×3 (08:40→19:30)
[2022-01-24] MEDS: ACETYLCYSTEINE 10% SOLN 400 MG/4 ML VIAL NEB SCH ×3 (08:41→23:30)
[2022-01-24] MEDS: BUDESONIDE RESPULE INH 0.5 MG/2 ML AMPUL.NEB NEB SCH ×2 (09:09→17:00)
--- NOTE | 2022-01-24 09:23 | NUR ---
PATIENT ON 3 L 02 ON NC. PATIENT TX GIVEN AND NO DISTRESS NOTED Addendum: 01/24/22 at 0924 by ELOY GARZA RT Amended: Links added.
--- NOTE | 2022-01-24 15:20 | NUR ---
RN NOTE COVID SPECIMEN COLLECTED AND SENT TO THE LAB
--- NOTE | 2022-01-24 17:37 | NUR ---
SHIFT SUMMARY PATIENT IS A/O TO SELF. CONFUSED. RESTLESS AND AGITATED TOWARDS THE END OF THE SHIFT. ATIVAN GIVEN X1. ON 02 AT 2 LPM VIA NC, SATURATING WELL. HOB ELEVATED AT ALL TIMES. PLACED A NEW IV ACCESS ON R FA #24 G, SL, INTACT AND PATENT. MITTENS ON, ASSESSED Q2 PER PROTOCOL. INCONTINENCE CARE PROVIDED. REPOSITIONED EVERY Q2 FOR COMFORT. FALL PRECAUTIONS MAINTAINED AT ALL TIMES. ELIQUIS FOR VTE. TOLERATING TUBE FEEDING AT 60 ML/HR. SAFETY MEASURES MAINTAINED. BED IN LOWEST POSITION, BRAKES LOCKED. SIDE RAILS UP X2. CALL LIGHT WITHIN REACH. WILL ENDORSE CONTINUITY OF CARE TO ONCOMING SHIFT.
--- NOTE | 2022-01-24 18:32 | NUR ---
RECEIVED A CALL FROM THE LAB. PATIENT TESTED POSITIVE FOR COVID. BIOLOGICAL LAB TECHNICIAN CJ AND MERE JENNINGS WAS MADE AWARE. AWAITING FOR CALL BACK FROM [facility] FOR TRANSFER.
--- NOTE | 2022-01-24 18:39 | NUR ---
RN NOTE PENDING TRANSFER TO [facility] RM [id number]
--- NOTE | 2022-01-24 19:34 | NUR ---
MS RN OPENING NOTE RECEIVED PT AWAKE IN BED. A/O X1 AND CONFUSED. PT ON O2 @ 2LPM VIA NC. NO SOB OR S/S OF RESPIRATORY DISTRESS. BREATHING EVEN AND UNLABORED. IV ACCESS RFA 24 GAUGE, INTACT AND PATENT. WITH GTUBE RUNNING JEVITY 1.2 @ 60 CC/HR, TOLERATING WELL. WITH BILATERAL MITTENS FOR PT SAFETY, NOTED WITH GOOD CIRCULATION BILATERALLY. PT PENDING TRANSFER TO [facility] ROOM 116 DUE TO POSITIVE COVID RESULT. SAFETY PRECAUTIONS IN PLACE. BED IN LOWEST LOCKED POSITION, HOB ELEVATED, SIDE RAILS UP X3, BED ALARM ON, AND CALL LIGHT IN REACH. ALL NEEDS MET AT THIS TIME.
--- NOTE | 2022-01-24 20:04 | NUR ---
RN NOTE REPORT GIVEN TO MARIBEL. NOW GOING TO ROOM 119.
--- NOTE | 2022-01-24 20:17 | NUR ---
RN NOTE PT TRANSFERRED TO ROOM 119 [facility]IA [facility] WITH ANA REEVES AND KIERRA RAMOS. VSS.
[2022-01-24] MEDS: DOXAZOSIN MESYLATE (1 MG) 1 MG TABLET GT SCH (21:47)
[2022-01-25] MEDS: VANCOMYCIN 1 GM in IV D5W 250 ML IV SCH (03:52)
[2022-01-25] MEDS: LORAZEPAM 1 MG TABLET GT PRN ×2 (04:45→19:59)
[2022-01-25] MEDS: METOCLOPRAMIDE HCL 10 MG/10 ML UDC GT SCH ×3 (04:45→21:28)
--- NOTE | 2022-01-25 06:35 | NUR ---
RN CLOSING NOTE PATIENT WAS A TRANSFER FROM [facility]. NO BELONINGS WITH PATIENT. ON COVID ISOLATION. A/OX1, VERY CONFUSED. UNCLEAR SPEECH. ON 2L NC. NO S/S SOB NOTED. NO C/O PAIN. BILATERAL SOFT MITTENS. NO REDNESS NOTED. GTUBE FEEDING RUNNING. NO RESIDUAL. PRN ATIVAN GIVEN X1. PATIENT STEPHEN RESTLESS AND YELLING.
[2022-01-25 07:08] LABS: BASOPHILS # (AUTO) 0.1 K/uL (0.0-0.2); BASOPHILS % (AUTO) 0.7 % (0.0-2.0); EOSINOPHILS % (AUTO) 5.9 % (0.0-6.0); HEMATOCRIT 30 % (39-51); HEMOGLOBIN 9.9 g/dL (13.5-17.5); LYMPHOCYTES # (AUTO) 2.7 K/uL (0.8-4.8); LYMPHOCYTES % (AUTO) 38.2 % (20.0-44.0); MEAN CORPUSCULAR HGB CONC 33 g/dl (31.0-36.0); MEAN CORPUSCULAR VOLUME 90 fL (80-96); MONOCYTES # (AUTO) 0.8 K/uL (0.1-1.30); MONOCYTES % (AUTO) 11.1 % (2.0-12.0); NEUTROPHILS # (AUTO) 3.1 K/uL (1.8-8.9); NEUTROPHILS % (AUTO) 44.1 % (43.0-81.0); PLATELET COUNT (AUTO) 341 K/uL (150-450); RED BLOOD CELL COUNT(AUTO) 3.36 MIL/uL (4.5-6.0)
--- NOTE | 2022-01-25 07:30 | NUR ---
RN OPENING NOTE PATIENT IS IN BED ASLEEP BUT EASILY AROUSABLE. ALERT, ORIENTED X 1. WITH OXYGEN VIA NASAL CANNULA AT 2L/MIN. WITH BILATERAL SOFT MITTENS. WITH G-TUBE INFUSING WITH JEVITY 1.2 AT 60ML/HR. WITH RIGHT FOREARM SALINE LOCK INTACT AND PATENT. BREATHING UNLABORED AND NOT IN ANY FORM OF DISTRESS. BED IS LOCKED IN LOWEST POSITION, 3 SIDE RAILS UP, CALL LIGHT WITHIN REACH. WILL CONTINUE TO MONITOR THROUGHOUT SHIFT.
[2022-01-25] MEDS: IPRATROPIUM NEB FS 0.5 MG/2.5 ML AMPUL.NEB NEB SCH ×3 (07:35→19:30)
[2022-01-25] MEDS: ALBUTEROL FS 2.5 MG/3 ML VIAL.NEB NEB SCH ×3 (07:35→19:30)
[2022-01-25] MEDS: ACETYLCYSTEINE 10% SOLN 400 MG/4 ML VIAL NEB SCH ×3 (07:35→23:30)
[2022-01-25] MEDS: PIPERACILLIN /TAZOBACTAM 3.375 G in IV D5W 100 ML IV SCH ×3 (07:55→23:03)
[2022-01-25 08:09] LABS: CALCIUM, SERUM 8.1 mg/dL (8.5-10.1); CARBON DIOXIDE 28 mmol/L (21-32); CHLORIDE 102 mmol/L (98-107); CREATININE 1.4 mg/dL (0.6-1.3); GLUCOSE 99 mg/dL (74-106); MAGNESIUM 2.2 mg/dL (1.8-2.4); PHOSPHORUS 3.8 mg/dL (2.5-4.9); SODIUM SERUM 135 mmol/L (136-145); UREA NITROGEN, BLOOD 29 mg/dL (7-18)
[2022-01-25] MEDS: SENNOSIDES 8.6 MG TABLET GT SCH ×2 (08:36→16:19)
[2022-01-25] MEDS: LEVETIRACETAM SOL (5 ML) 100 MG/ML UDC GT SCH ×2 (08:36→16:18)
[2022-01-25] MEDS: METHIMAZOLE (5MG) 5 MG TABLET GT SCH ×2 (08:37→16:18)
[2022-01-25] MEDS: VALPROIC ACID 250 MG/5 ML UDC GT SCH ×3 (08:37→16:19)
[2022-01-25] MEDS: OLANZAPINE 2.5 MG TABLET GT SCH ×3 (08:38→16:19)
[2022-01-25] MEDS: CALCIUM CARB 600MG /VIT D 1 EACH TABLET GT SCH (08:38)
[2022-01-25] MEDS: busPIRone 5 MG TABLET GT SCH ×3 (08:38→16:19)
[2022-01-25] MEDS: MULTIVIT W/MINERALS 1 TAB TABLET GT SCH (08:38)
[2022-01-25] MEDS: APIXABAN 5 MG TABLET GT SCH ×2 (08:39→16:20)
[2022-01-25] MEDS: SCOPOLAMINE PATCH 1 MG/72HR TD SCH (08:53)
[2022-01-25] MEDS: BUDESONIDE RESPULE INH 0.5 MG/2 ML AMPUL.NEB NEB SCH ×2 (09:00→17:00)
[2022-01-25 09:33] LABS: BASOPHILS % (MANUAL) 0 % (0.0-2.0); EOSINOPHILS % (MANUAL) 3 % (0-4); LYMPHOCYTES % (MANUAL) 39 % (16-48); MONOCYTES % (MANUAL) 8 % (0-11.0); NEUTROPHILS % (MANUAL) 50 (42-76)
--- NOTE | 2022-01-25 13:42 | NUR ---
RN NOTE PRODUCTIVE COUGH NOTED ON PATIENT. BACK AND CHEST CLAPPING WAS DONE TO PROMOTE SECRETION DRAINAGE.
[2022-01-25] MEDS: JEVITY 1.2 CAL 1,000 ML BOTTLE GT PRN (15:44)
[2022-01-25] MEDS: DEXAMETHASONE SOD PHOSPHATE 10 MG/ML VIAL IV SCH (16:17)
--- NOTE | 2022-01-25 19:00 | NUR ---
RN CLOSING NOTE PATIENT REMAINED STABLE THROUGHOUT SHIFT. STILL CONFUSED THUS THE NEED FOR BILATERAL SOFT WRIST RESTRAINTS. STILL ON NASAL CANNULA AT 2L/MIN. PEG TUBE INTACT AND PATENT. RIGHT FOREARM SALINE LOCK INTACT AND PATENT. BREATHING UNLABORED AND NOT IN ANY FORM OF DISTRESS. ALL HOSPITAL PRECAUTIONS IN PLACE. WILL ENDORSE TO SUPERVISOR FUSING ROOM NURSE.
--- NOTE | 2022-01-25 21:20 | NUR ---
RN OPENING NOTE RECEIVED PATIENT IN BED ASLEEP BUT EASY TO AROUSE.WITH OXYGEN VIA NASAL CANNULA AT 2L/MIN.CATALINA WELL NO SIGN SOB/DISTRESS NOTED. WITH BILATERAL SOFT MITTENS. WITH G-TUBE INFUSING WITH JEVITY 1.2 AT 60ML/HR. WITH RIGHT FOREARM SALINE LOCK INTACT AND PATENT.BED IS LOCKED IN LOWEST POSITION, 3 SIDE RAILS UP, CALL LIGHT WITHIN REACH. WILL CONTINUE TO MONITOR.
[2022-01-25 21:29] VITALS: BP 111/84
[2022-01-25] MEDS: DOXAZOSIN MESYLATE (1 MG) 1 MG TABLET GT SCH (21:29)
[2022-01-26] MEDS: VANCOMYCIN 1 GM in IV D5W 250 ML IV SCH (03:25)
[2022-01-26] MEDS: METOCLOPRAMIDE HCL 10 MG/10 ML UDC GT SCH (04:05)
--- NOTE | 2022-01-26 04:45 | NUR ---
RT NOTE PT SX'D FOR LARGE AMOUNT OF THIN CLEAR SECRETIONS. NO SOB NOTED @ THIS TIME. PT CATALINA 3LNC. RN AWARE.
--- NOTE | 2022-01-26 06:27 | NUR ---
RN OPENING NOTE PATIENT IN BED ASLEEP BUT EASY TO AROUSE.WITH OXYGEN VIA NASAL CANNULA AT 2L/MIN.CATALINA WELL NO SIGN SOB/DISTRESS NOTED.DUE MEDS GIVEN ORDER.ALL NEEDS ATTENDED. WITH BILATERAL SOFT MITTENS.G-TUBE FEEDING INFUSING WITH JEVITY 1.2 AT 60ML/HR. WITH RIGHT FOREARM SALINE LOCK INTACT AND PATENT.BED IS LOCKED IN LOWEST POSITION, 3 SIDE RAILS UP, CALL LIGHT WITHIN REACH. WILL ENDORSED TO NEXT SHIFT.
[2022-01-26] MEDS: IPRATROPIUM NEB FS 0.5 MG/2.5 ML AMPUL.NEB NEB SCH (07:35)
[2022-01-26] MEDS: ALBUTEROL FS 2.5 MG/3 ML VIAL.NEB NEB SCH (07:35)
[2022-01-26] MEDS: ACETYLCYSTEINE 10% SOLN 400 MG/4 ML VIAL NEB SCH (07:35)
[2022-01-26] MEDS: PIPERACILLIN /TAZOBACTAM 3.375 G in IV D5W 100 ML IV SCH (08:05)
[2022-01-26] MEDS: DEXAMETHASONE SOD PHOSPHATE 10 MG/ML VIAL IV SCH (08:57)
[2022-01-26] MEDS: CALCIUM CARB 600MG /VIT D 1 EACH TABLET GT SCH (08:57)
[2022-01-26] MEDS: METHIMAZOLE (5MG) 5 MG TABLET GT SCH (08:58)
[2022-01-26] MEDS: SENNOSIDES 8.6 MG TABLET GT SCH (08:58)
[2022-01-26] MEDS: MULTIVIT W/MINERALS 1 TAB TABLET GT SCH (08:58)
[2022-01-26] MEDS: OLANZAPINE 2.5 MG TABLET GT SCH (08:58)
[2022-01-26] MEDS: busPIRone 5 MG TABLET GT SCH (08:58)
[2022-01-26] MEDS: VALPROIC ACID 250 MG/5 ML UDC GT SCH (08:58)
[2022-01-26] MEDS: LEVETIRACETAM SOL (5 ML) 100 MG/ML UDC GT SCH (08:58)
[2022-01-26] MEDS: BUDESONIDE RESPULE INH 0.5 MG/2 ML AMPUL.NEB NEB SCH (09:00)
[2022-01-26] MEDS: APIXABAN 5 MG TABLET GT SCH (09:00)
--- NOTE | 2022-01-26 09:00 | NUR ---
dr. welch notified case management arranged ambulance pickup for 1030am today,requested for dc order and meds,also mad4e aware dr. kahn cleared pt pulmonary rao,will continue to ff. up
--- NOTE | 2022-01-26 10:06 | NUR ---
deisy patel notified still waiting for final dc order,per deisy pretty not cancel ambulance and they also notified dr. welch about dc order.
--- NOTE | 2022-01-26 10:39 | NUR ---
seen by dr. welch cleared pt for discharge and did meds by tms.awaits ambulance.primary nurse gave report to snf.
--- NOTE | 2022-01-26 11:19 | NUR ---
RN CLOSING NOTE PATIENT IS DISCHARGED TO [facility] VIA AMBULANCE. BREATHING UNLABORED AND NOT IN ANY FORM OF DISTRESS. ALL FORMS SIGNED. IV DISCONTINUED, CATHETER TIP INTACT. PATIENT IS STABLE ON ROOM AIR, WITH DISCHARGE VITAL SIGNS OF T 97.5, HR 54, RR 20, O2 SAT 98 AND BP 135/78.
[2022-01-27] MEDS ORDERED: VANCOMYCIN 0.75 GM in IV D5W 250 ML IV SCH (06:00)
== END 2022-01-26 11:30 | DRG 871 ==
LOC: ER 18:07 → TELE 21:02 → MED 01-19 11:37 → TELE1 01-24 20:17 → MEDSG1 01-24 20:32
PROVIDERS: ADMIT Nurse Practitioner Acute Care; ATTEND Student in an Organized Health Care Education/Training Program
DX: A41.89 Other specified sepsis (principal); E43 Unspecified severe protein-calorie malnutrition; G93.41 Metabolic encephalopathy; J12.82 Pneumonia due to coronavirus disease 2019; J69.0 Pneumonitis due to inhalation of food and vomit; J96.01 Acute respiratory failure with hypoxia; N17.0 Acute kidney failure with tubular necrosis; U07.1 COVID-19; I50.33 Acute on chronic diastolic (congestive) heart failure; D68.59 Other primary thrombophilia; E87.1 Hypo-osmolality and hyponatremia; J44.0 Chronic obstructive pulmonary disease with (acute) lower respiratory infection; I13.0 Hypertensive heart and chronic kidney disease with heart failure and stage 1 through stage 4 chronic kidney disease, or unspecified chronic kidney disease; E05.90 Thyrotoxicosis, unspecified without thyrotoxic crisis or storm; E11.22 Type 2 diabetes mellitus with diabetic chronic kidney disease; E78.5 Hyperlipidemia, unspecified; F03.90 Unspecified dementia, unspecified severity, without behavioral disturbance, psychotic disturbance, mood disturbance, and anxiety; I48.91 Unspecified atrial fibrillation; I25.10 Atherosclerotic heart disease of native coronary artery without angina pectoris; N18.9 Chronic kidney disease, unspecified; Z79.01 Long term (current) use of anticoagulants; Z87.820 Personal history of traumatic brain injury; Z93.1 Gastrostomy status; N40.0 Benign prostatic hyperplasia without lower urinary tract symptoms; D63.8 Anemia in other chronic diseases classified elsewhere; Z74.09 Other reduced mobility; R65.20 Severe sepsis without septic shock; K70.9 Alcoholic liver disease, unspecified; Z68.22 Body mass index [BMI] 22.0-22.9, adult; E88.09 Other disorders of plasma-protein metabolism, not elsewhere classified; Z87.891 Personal history of nicotine dependence; R13.10 Dysphagia, unspecified; Z86.73 Personal history of transient ischemic attack (TIA), and cerebral infarction without residual deficits; Z87.01 Personal history of pneumonia (recurrent); Z82.49 Family history of ischemic heart disease and other diseases of the circulatory system
CPT/HCPCS: 31720; 36415; 36600; 71045-TC; 71250-TC; 80048-TC; 80076-TC; 80202-TC; 81001; 82803-TC; 83605-TC; 83735-TC; 83880; 84100-TC; 84484-TC; 85025-TC; 85730-TC; 87040-TC; 87081-TC; 87086-TC; 94799-TC; C9803; G0378; J0456; J0696; J1100; J1940; J1953; J2060; J2543; J3370; J7030; J7050; J7060; J8597

== ENCOUNTER 2022-02-04 20:52 | Inpatient (IN) | payer MEDICARE, OTHER ==
[~2022-02-04] VITALS: Ht 170.2 cm; Wt 62.6 kg
[~2022-02-04 20:52] MED LIST changes: +ACET-868 GT; -ALBU18HF2 IH; +APIX5TAB GT; -ATOR20TA PO; +BISA10SU11 RC; +BUDE180A IH; +BUSP5TAB3 GT; +CALC1TAB30 GT; +CRAN3875 GT; +DOXA2TAB GT; -FINA5TAB3 PO; -FLUT1DIS3 INH; -FOLI1TAB16 PO; +FURO-145 GT; +IPRA12.9 IH; -LACT10SO69 PO; +LEVA15HF4 IH; +LEVE100S GT; +LORA-259 GT; +MAGN400O6 GT; +METH10TA80 GT; -METO50TA16 PO; +METO5SOL2 GT; -MIRT-91 PO; +MULT-447 GT; -MYRBETRIQ PO; +NA P133E RC; +NUTR250L50 GT; +OLAN2.5T3 GT; -OLME1TAB34 PO; -QUET50TA PO; -RIFA550T PO; +SCOP1PAT11 TD; +SENN-261 GT; -SPIR25TA PO; -THIA100T13 PO; +VALP250S4 GT; +ZOLP5TAB2 GT; -[UNRECOGNIZED DRUG - CODE] PO
--- NOTE | 2022-02-04 20:57 | NUR ---
[id number] FROM [facility] C/O SOB SATTING 80'S NOW ON NONREBREATHER SATTING 93% +RALES BILATERAL LOBES COVID POSITIVE JAN 3. PATIENT IN BED 06 ON MONITOR AND POX, AWAITING MD GARCIA.
--- NOTE | 2022-02-04 21:10 | NUR ---
LAC #18G S/L BLOOD AND COVID ANTIGEN SWAB COLLECTED AND SENT TO LAB
--- NOTE | 2022-02-04 21:11 | NUR ---
RT AT PT'S BEDSIDE FOR SUCTION
--- NOTE | 2022-02-04 21:11 | NUR ---
BLOOD COLLECTED AND SEND TO LAB
--- NOTE | 2022-02-04 21:12 | NUR ---
BLOOD CULTURES COLLECTED AND SENT TO LAB
[2022-02-04] MEDS ORDERED: FUROSEMIDE 40 MG/4 ML VIAL ONE (21:20)
[2022-02-04] MEDS ORDERED: methylPREDNISolone SOD SUCC 125 MG/2ML VIAL ONE (21:20)
[2022-02-04] MEDS ORDERED: VANCOMYCIN 1 GM VIAL ONE (21:21)
[2022-02-04] MEDS ORDERED: PIPERACILLIN /TAZOBACTAM 3.375 G VIAL IV ONE (21:21)
[2022-02-04] MEDS ORDERED: PIPERACILLIN /TAZOBACTAM 3.375 G in IV D5W 50 ML IV ONE (21:30)
[2022-02-04] MEDS ORDERED: VANCOMYCIN 1 GM in IV D5W 250 ML IV ONE (21:30)
[2022-02-04] MEDS ORDERED: FUROSEMIDE 40 MG/4 ML VIAL IV ONE (21:30)
[2022-02-04] MEDS ORDERED: methylPREDNISolone SOD SUCC 125 MG/2ML VIAL IV ONE (21:30)
--- NOTE | 2022-02-04 21:30 | NUR ---
RT AT PT'S BEDSIDE; PT ON BIPAP IPAP 15 EPAP 20 FIO2 100% SATTING 95%. PT TOLERATING WELL
--- NOTE | 2022-02-04 21:34 | NUR ---
WASHING MACHINE LOADER AT PT'S BEDSIDE
[2022-02-04 21:36] LABS: HEMATOCRIT 38 % (39-51); HEMOGLOBIN 12.2 g/dL (13.5-17.5); MEAN CORPUSCULAR HGB CONC 32 g/dl (31.0-36.0); MEAN CORPUSCULAR VOLUME 93 fL (80-96); PLATELET COUNT (AUTO) 541 K/uL (150-450); RED BLOOD CELL COUNT(AUTO) 4.07 MIL/uL (4.5-6.0); WHITE BLOOD COUNT (AUTO) 20.9 K/uL (4.3-11.0)
[2022-02-04 21:42] LABS: CARBON DIOXIDE 27 mmol/L (21-32); CHLORIDE 102 mmol/L (98-107); CREATININE 1.5 mg/dL (0.6-1.3); GLUCOSE 162 mg/dL (74-106); SODIUM SERUM 135 mmol/L (136-145); UREA NITROGEN, BLOOD 29 mg/dL (7-18)
--- NOTE | 2022-02-04 21:47 | NUR ---
RT NOTE PT REC'D ON NRB MASK @ 15LPM. PT DIAPHORETIC AND SHOWED SIGNS OF TACHYPNEA AND INCREASED WOB. PT PLACED ON BIPAP ON NOTED SETTINGS PER MD ORDERS. ALARMS ARE SET AND AUDIBLE. BIPAP PLUGGED INTO RED OUTLET. AMBU BAG AT BEDSIDE. ABG TO BE TAKEN WITHIN 1HR. Addendum: 02/04/22 at 2151 by OMAR PITTMAN RT Amended: Links added.
[2022-02-04 21:54] LABS: ALANINE AMINOTRANSFERASE 36 U/L (12-78); ALBUMIN 2.8 g/dL (3.4-5.0); ALKALINE PHOSPHATASE 142 U/L (46-116); ASPARTATE AMINOTRANSFERASE 30 U/L (15-37); BILIRUBIN,DIRECT 0.2 mg/dL (0.0-0.2); BILIRUBIN,TOTAL 0.5 mg/dL (0.2-1.0); TOTAL PROTEIN, SERUM 9.2 g/dL (6.4-8.2)
[2022-02-04] MEDS ORDERED: ASPIRIN 300 MG/SUPP.RECT RC ONE ×2 (22:00→22:03)
[2022-02-04] MEDS ORDERED: LIDOCAINE 2% JEL UROJET 10 ML MM ONE (22:02)
--- NOTE | 2022-02-04 22:16 | NUR ---
URINE COLLECTED AND SENT TO LAB
[2022-02-04 22:31] LABS: BAND % (MANUAL) 14 % (0.0-5.0); BASOPHILS % (MANUAL) 0 % (0.0-2.0); EOSINOPHILS % (MANUAL) 0 % (0-4); LYMPHOCYTES % (MANUAL) 10 % (16-48); MONOCYTES % (MANUAL) 4 % (0-11.0); NEUTROPHILS % (MANUAL) 72 (42-76)
[2022-02-04 22:39] LABS: BILIRUBIN,URINE NEGATIVE (NEGATIVE); COLOR,URINE YELLOW (YELLOW); LEUKOCYTE ESTERASE ,URINE NEGATIVE (NEGATIVE); NITRITE, URINE NEGATIVE (NEGATIVE); PROTEIN,URINE NEGATIVE (NEGATIVE); UGLUCOSE NEGATIVE (NEGATIVE); UROBILINOGEN,URINE 0.2 EU/dL (0.2)
--- NOTE | 2022-02-04 22:42 | NUR ---
[facility]
[2022-02-04 23:04] LABS: BACTERIA,URINE Rare /HPF (None Seen); SQUAMOUS EPITHELIAL CELL,UR Few /HPF (None Seen); WBC,URINE 0-2 /HPF (0-3)
--- NOTE | 2022-02-04 23:28 | NUR ---
[facility] [phone]
--- NOTE | 2022-02-04 23:30 | NUR ---
REPORT GIVEN TO DIANN PEREZ FOR MAKENNA
[2022-02-04 23:48] LABS: ABG BASE EXCESS -1.5 mmol/L; ABG PCO2 31.2 mmHg (35.0-45.0); ABG PH 7.457 (7.350-7.450); ABG PO2 279.6 mmHg (75.0-100.0); COHb 0.3 % (0.5-1.5); MetHb 0.2 % (0.0-1.5); O2Hb 99.1 % (94.0-97.0); SITE, ABG Right Radial; VENT MODE, BG Bipap 20/5 RR20 100%
[2022-02-05] VITALS (27 sets, daily range): BP systolic 80–164; BP diastolic 42–137
[2022-02-05] MEDS ORDERED: Z GUARD REMEDY 4 OZ OINT TP PRN
[2022-02-05] MEDS ORDERED: ZOLPIDEM TARTRATE 5 MG TABLET PO PRN
[2022-02-05] MEDS ORDERED: MAG HYDROX/AL HYDROX/SIMETH 30 ML UDC PO PRN
[2022-02-05] MEDS ORDERED: ONDANSETRON HCL/PF 4 MG/2 ML VIAL IVP PRN
[2022-02-05] MEDS ORDERED: MAGNESIUM HYDROXIDE 30 ML UDC PO PRN
[2022-02-05] MEDS ORDERED: ACETAMINOPHEN 325 MG TABLET PO PRN
--- NOTE | 2022-02-05 00:20 | NUR ---
RN NOTES RECEIVED CARE OF PATIENT FROM ER NURSE, PATIENT CONFUSED, ANXIOUS, UNABLE TO FOLLOW SIMPLE COMMANDS. PATIENT IS O2 THERAPY VIA BIPAP WITH 100% FIO2, EPAP 5, IPAP 20, RATE 20, SOB NOTED ON EXERTION, O2 SAT 97%, NO RESPIRATORY DISTRESS NOTED ON PATIENT. TELE MONIOR READING NSR WITH HR OF 91. SAFETY MEASURES IN PLACE PER HOSPITAL PROTOCOLS. WILL CARRY OUT ADMISSION ORDERS.
--- NOTE | 2022-02-05 01:20 | NUR ---
RCVD PT ON BIPAP 20/5 ,RATE 20, FIO2 100%. PT IS CONFUSED. BIPAP PLUGGED INTO RED OUTLET, ALARMS ON AND AUDIBLE. AMBU BAG @ BEDSIDE.WILL CONTINUE TO MONITOR T/O SHIFT.
[2022-02-05] MEDS ORDERED: BISACODYL SUPP (10 MG) 10 MG/SUPP.RECT SUPP.RECT RC PRN (02:00)
[2022-02-05] MEDS ORDERED: LEVALBUTEROL TARTRATE IH PRN (02:00)
[2022-02-05] MEDS ORDERED: NA PHOS,M-B/NA PHOS,DI-BA 1 EA ENEMA RC PRN (02:00)
[2022-02-05] MEDS ORDERED: ZOLPIDEM TARTRATE 5 MG TABLET GT PRN (02:00)
[2022-02-05] MEDS ORDERED: LORAZEPAM 1 MG TABLET GT PRN (02:00)
[2022-02-05] MEDS ORDERED: MAGNESIUM HYDROXIDE 30 ML UDC GT PRN (02:00)
[2022-02-05] MEDS ORDERED: ZOSYN IVPB 3.375 G in IV D5W 50ml IV SCH (04:00)
[2022-02-05] MEDS ORDERED: PIPERACILLIN /TAZOBACTAM 3.375 G VIAL IV ONE (04:39)
[2022-02-05] MEDS ORDERED: IV NS 0.9% 250 ML IV PRN (05:00)
[2022-02-05 05:14] LABS: BASOPHILS % (AUTO) 0.1 % (0.0-2.0); HEMATOCRIT 36 % (39-51); LYMPHOCYTES # (AUTO) 0.7 K/uL (0.8-4.8); LYMPHOCYTES % (AUTO) 2.8 % (20.0-44.0); MEAN CORPUSCULAR HGB CONC 33 g/dl (31.0-36.0); MEAN CORPUSCULAR VOLUME 92 fL (80-96); MONOCYTES # (AUTO) 0.6 K/uL (0.1-1.30); MONOCYTES % (AUTO) 2.6 % (2.0-12.0); NEUTROPHILS # (AUTO) 23.4 K/uL (1.8-8.9); NEUTROPHILS % (AUTO) 94.5 % (43.0-81.0); PLATELET COUNT (AUTO) 494 K/uL (150-450); RED BLOOD CELL COUNT(AUTO) 3.93 MIL/uL (4.5-6.0); WHITE BLOOD COUNT (AUTO) 24.8 K/uL (4.3-11.0)
--- NOTE | 2022-02-05 05:14 | NUR ---
TITRATE O2 TO 50% SPO2 98% NO DISTRESS NOTED AT THIS TIME. RN DIANN NOTIFIED. WILL CONTINUE TO MONITOR T/O SHIFT
[2022-02-05] MEDS: VALPROIC ACID 250 MG/5 ML UDC GT SCH ×3 (05:22→21:47)
[2022-02-05] MEDS: methylPREDNISolone SOD SUCC 125 MG/2ML VIAL IV SCH ×3 (05:23→21:40)
[2022-02-05] MEDS: METOCLOPRAMIDE HCL 10 MG/10 ML UDC GT SCH ×3 (05:23→21:36)
[2022-02-05 05:32] LABS: CALCIUM, SERUM 8.8 mg/dL (8.5-10.1); CARBON DIOXIDE 28 mmol/L (21-32); CHLORIDE 101 mmol/L (98-107); CREATININE 1.6 mg/dL (0.6-1.3); GLUCOSE 117 mg/dL (74-106); PHOSPHORUS 3.8 mg/dL (2.5-4.9); POTASSIUM 4.9 mmol/L (3.5-5.1); SODIUM SERUM 135 mmol/L (136-145); UREA NITROGEN, BLOOD 29 mg/dL (7-18)
[2022-02-05 05:50] LABS: BAND % (MANUAL) 11 % (0.0-5.0); BASOPHILS % (MANUAL) 0 % (0.0-2.0); EOSINOPHILS % (MANUAL) 0 % (0-4); LYMPHOCYTES % (MANUAL) 4 % (16-48); MONOCYTES % (MANUAL) 3 % (0-11.0); NEUTROPHILS % (MANUAL) 82 (42-76)
[2022-02-05] MEDS ORDERED: LEVALBUTEROL TARTRATE IH SCH (06:00)
[2022-02-05] MEDS ORDERED: Medication Not On Formulary EA (Ipratropium Bromide (Atrovent Hfa) 1 PUFF) IH SCH (06:00)
--- NOTE | 2022-02-05 07:30 | NUR ---
RN NOTES ENDORSED CARE OF PATIENT TO AM NURSE, NO SIGNIFICANT FINDINGS UPON ALL NURSING ASSESSMENTS. ALL DUE MEDS GIVEN AND PLAN OF CARE CARRIED OUT. ENDORSED CARE OF PATIENT TO AM NURSE FOR CONTINUITY OF CARE.
--- NOTE | 2022-02-05 07:30 | NUR ---
CONCRETE WALL GRINDER OPERATOR OPENING NOTE PATIENT IS IN BED, ASLEEP BUT EASILY AROUSABLE, ALERT AND ORIENTED X 1. PREVIOUSLY ON BIPAP BUT NOW ON O2 AT 2L/MIN. AWAITING ABG RESULT. PATIENT DOES NOT APPEAR TO BE IN RESPIRATORY DISTRESS. SINUS RHYTHM ON [employer]. WITH KOENIG CATHETER ATTACHED TO URINE BAG DRAINING TO CLEAR YELLOW URINE. WITH RIGHT AND LEFT ANTECUBITAL IV LINE INTACT AND PATENT. BED IS LOCKED IN LOWEST POSITION, 3 SIDE RAILS UP, CALL LIGHT WITHIN REACH. WILL CONTINUE TO MONITOR THROUGHOUT SHIFT.
[2022-02-05 08:22] LABS: ABG BASE EXCESS -0.8 mmol/L; ABG OXYGEN SATURATION 92.1 % (92.0-98.5); ABG PCO2 31.4 mmHg (35.0-45.0); ABG PH 7.467 (7.350-7.450); ABG PO2 60.3 mmHg (75.0-100.0); AaDO2 131.1 mmHg; MetHb 0.3 % (0.0-1.5); O2Hb 90.9 % (94.0-97.0); SITE, ABG Right Radial; VENT MODE, BG 3 LPM NC
[2022-02-05] MEDS ORDERED: Medication Not On Formulary EA (Cran/Vitc/Mannose/Inulin/Brom (Uti-Stat Liquid) 3,875 MG GT SCH (09:00)
[2022-02-05] MEDS ORDERED: FUROSEMIDE 40 MG/4 ML VIAL IV SCH (09:00)
[2022-02-05] MEDS ORDERED: ALBUTEROL FS 2.5 MG/0.5 ML VIAL.NEB NEB PRN (09:00)
[2022-02-05] MEDS ORDERED: ENOXAPARIN SODIUM 40 MG/0.4 ML DISP.SYRIN SQ SCH (09:00)
[2022-02-05] MEDS: HYDROCORTISONE SOD SUCCINATE 100 MG/2 ML VIAL IV SCH ×3 (09:46→21:41)
[2022-02-05] MEDS: SENNOSIDES 8.6 MG TABLET GT SCH ×2 (09:47→16:53)
[2022-02-05] MEDS: ASPIRIN 81 MG TAB.CHEW PO SCH (09:47)
[2022-02-05] MEDS: busPIRone 5 MG TABLET GT SCH ×3 (09:47→16:52)
[2022-02-05] MEDS: PANTOPRAZOLE 40 MG TABLET.DR PO SCH (09:47)
[2022-02-05] MEDS: CALCIUM CARB 250MG /VITAMIN D 1 UDTAB GT SCH (09:47)
[2022-02-05] MEDS: OLANZAPINE 2.5 MG TABLET GT SCH ×3 (09:47→16:53)
[2022-02-05] MEDS: METHIMAZOLE (5MG) 5 MG TABLET GT SCH ×2 (09:47→16:53)
[2022-02-05] MEDS: APIXABAN 5 MG TABLET GT SCH ×2 (09:48→21:37)
[2022-02-05] MEDS: LEVETIRACETAM SOL (5 ML) 100 MG/ML UDC GT SCH ×2 (09:49→21:36)
--- NOTE | 2022-02-05 10:00 | NUR ---
RN NOTE SEEN AND EXAMINED BY DR. TO. PER , PATIENT IS OKAY TO START FEEDING. AWAITING FNS CONSULT.
[2022-02-05] MEDS: VANCOMYCIN 1.25 GM in IV D5W 250 ML IV SCH (11:05)
[2022-02-05] MEDS: PIPERACILLIN /TAZOBACTAM 3.375 G in IV D5W 100 ML IV SCH ×2 (13:10→21:41)
[2022-02-05] MEDS: ALBUTEROL FS 2.5 MG/0.5 ML VIAL.NEB NEB SCH ×2 (13:44→19:30)
[2022-02-05] MEDS: IPRATROPIUM NEB FS 0.5 MG/2.5 ML AMPUL.NEB NEB SCH ×2 (13:44→19:30)
[2022-02-05] MEDS: JEVITY CAL GT PRN (18:37)
--- NOTE | 2022-02-05 18:58 | NUR ---
RN CLOSING NOTE PATIENT REMAINED STABLE THROUGHOUT SHIFT. TOLERATES OXYGEN VIA NASAL CANNULA AT 4L/MIN, OXYGEN SATURATION AT 92%. STILL WITH EPISODES OF CONFUSION. TUBE FEEDING OF JEVITY 1.2 STARTED AT 25 CC/HR. LEFT AND RIGHT ANTECUBITAL LINE INTACT AND PATENT. KOENIG CATHETER INTACT. ALL SAFETY MEASURES IN PLACE. BED IS LOCKED IN LOWEST POSITION, 3 SIDE RAILS UP, CALL LIGHT WITHIN REACH. WILL ENDORSE TO BUNG DROPPER NURSE.
[2022-02-05] MEDS: BUDESONIDE RESPULE INH 0.5 MG/2 ML AMPUL.NEB NEB SCH (19:30)
--- NOTE | 2022-02-05 20:31 | NUR ---
ASSOCIATE SOFTWARE DEVELOPMENT ENGINEER. INITIAL ASSESSMENT. RECEIVED THE PT REST IN BED. AWAKE, CONFUSED. DOES NOT FOLLOW COMMANDS. MACHINE PECAN GATHERER SHOWING A FIB, OXYGEN 4 L VIA NASAL CANNULA. SAT 98%. NO ACUTE DISTRESS NOTED. IV RT AND LT HAND 20G TKO RUNNING. GT INTACT. JEVITY 20 ML/H. FC PATENT. WILL CONTINUE TO MONITOR VITALS.
[2022-02-05] MEDS: DOXAZOSIN MESYLATE (1 MG) 1 MG TABLET GT SCH (21:40)
[2022-02-06] VITALS (17 sets, daily range): BP systolic 83–110; BP diastolic 39–66
[2022-02-06] MEDS: ALBUTEROL FS 2.5 MG/0.5 ML VIAL.NEB NEB SCH ×4 (01:55→20:26)
[2022-02-06] MEDS: IPRATROPIUM NEB FS 0.5 MG/2.5 ML AMPUL.NEB NEB SCH ×4 (01:55→20:25)
--- NOTE | 2022-02-06 03:42 | NUR ---
LAY UPS ASSEMBLER. AM CARE GIVEN. REMAINING SAME OXYGEN TOLERATED WELL. SAT 98%. NO ACUTE DISTRESS NOTED. PROJECT CONTROL MANAGER SHOWING A FIB. FC PATENT. URINE DRAINING. TURN AND REPOSITION Q2H. GT FEEDING TOLERATED WELL. TURN AND REPOSITION Q2H. WILL CONTINUE TO MONITOR VITALS.
[2022-02-06] MEDS: HYDROCORTISONE SOD SUCCINATE 100 MG/2 ML VIAL IV SCH (04:24)
[2022-02-06] MEDS: METOCLOPRAMIDE HCL 10 MG/10 ML UDC GT SCH ×3 (04:24→22:00)
[2022-02-06] MEDS: VALPROIC ACID 250 MG/5 ML UDC GT SCH ×3 (04:24→21:57)
[2022-02-06] MEDS: PIPERACILLIN /TAZOBACTAM 3.375 G in IV D5W 100 ML IV SCH ×3 (04:25→21:51)
[2022-02-06] MEDS: methylPREDNISolone SOD SUCC 125 MG/2ML VIAL IV SCH ×3 (04:25→22:00)
[2022-02-06] MEDS: PANTOPRAZOLE 40 MG TABLET.DR PO SCH (07:30)
--- NOTE | 2022-02-06 07:30 | NUR ---
RN NOTES PT FOUND, APPEARS TO BE SLEEPING, SEMI FOWLERS DISPLAYING NO S/S OF DISTRESS, FLACC = 0 AND BREATHING IS EVEN AND UNLABORED ON NC. 30 ML RESIDUAL MEASURED VIA PEG. L AC 20G IS PATIENT AND INTACT. KOENIG CATH RESERVOIR BELOW PATIENT DRAINING BY GRAVITY. RN WILL CONTINUE CARE PLAN AND ANTICIPATE NEEDS. SAFETY MEASURES IN PLACE, BED LOCKED AND IN LOWEST POSITION, SIDE RAILS UPX3, CALL LIGHT WITHIN REACH, BED ALARM ARMED.
[2022-02-06] MEDS: BUDESONIDE RESPULE INH 0.5 MG/2 ML AMPUL.NEB NEB SCH ×2 (07:41→20:25)
[2022-02-06] MEDS: METHIMAZOLE (5MG) 5 MG TABLET GT SCH ×2 (08:40→16:31)
[2022-02-06] MEDS: ASPIRIN 81 MG TAB.CHEW PO SCH (08:40)
[2022-02-06] MEDS: SENNOSIDES 8.6 MG TABLET GT SCH ×2 (08:40→16:31)
[2022-02-06] MEDS: CALCIUM CARB 250MG /VITAMIN D 1 UDTAB GT SCH (08:40)
[2022-02-06] MEDS: LEVETIRACETAM SOL (5 ML) 100 MG/ML UDC GT SCH ×2 (08:40→22:07)
[2022-02-06] MEDS: OLANZAPINE 2.5 MG TABLET GT SCH ×3 (08:40→16:31)
[2022-02-06] MEDS: busPIRone 5 MG TABLET GT SCH ×3 (08:41→16:30)
[2022-02-06] MEDS: APIXABAN 5 MG TABLET GT SCH ×2 (08:42→21:58)
[2022-02-06] MEDS: VANCOMYCIN 1.25 GM in IV D5W 250 ML IV SCH (11:00)
--- NOTE | 2022-02-06 11:30 | NUR ---
RN NOTE PT PULLED OUT R 20G IV IN AC, SHOUTING NONSENSE WORDS. BILATERAL SOFT WRISTS APPLIED, PULSES CHECKED DISTALLY AND CAP REFILL < 3 SECONDS BILATERALLY. PT CLEANED AND PROVIDED FRESH LINENS. RN INFORMED LIZBET CHOI, LIZBET ACKNOWLEDGED.
--- NOTE | 2022-02-06 11:35 | NUR ---
DNP COMMUNICATION DNP GAVE ORDERS: ZYPREXA 5MG IM 1X NOW. RN ACKNOWLEDGED AND WILL EXECUTE ORDERS.
[2022-02-06] MEDS ORDERED: OLANZAPINE 10 MG VIAL IM ONE (12:00)
[2022-02-06] MEDS: JEVITY CAL GT PRN (16:36)
--- NOTE | 2022-02-06 17:00 | NUR ---
ADMITTING NOTES PATIENT ARRIVED TO UNIT VIA GURNEY, TRANSFERRED TO BED WITHOUT INCIDENT. JEVITY 1.2 HERACLIO INFUSING VIA G-TUBE @ 55 ML/HR, L AC # 20 G SL CLEAN, INTACT, AND FLUSHING WELL. TELE MONITOR IN PLACE READING SR. BILATERAL SOFT WRIST RESTRAINTS IN PLACE WITH CIRCULATION, MOTOR FUNCTION, AND SENSATION IN PLACE DISTALLY X 2. REDNESS PRESENT ON COCCYX AND SACRUM, PHOTOS TO BE TAKEN DURING BENZENE WASHER. PATIENT WITH 4 LPM O2 VIA CANNULA. HOB ELEVATED FOR ASPIRATION PRECAUTIONS. SAFETY MEASURES IN PLACE: BED IN LOWEST LOCKED POSITION, SIDE RAILS UP X 2, CALL LIGHT WITHIN REACH. WILL CONTINUE TO MONITOR.
--- NOTE | 2022-02-06 17:00 | NUR ---
TRANSFER RN DOWNGRADED PT TO 309, CALLED AND GAVE REPORT TO ANA HO, ANSWERED ALL QUESTIONS. PT IS CURRENTLY AGITATED, YELLING INDECENTLY. VS ARE STABLE BEFORE AND THROUGHOUT TRANSFER. PT MOVED VIA HOSPITAL BED, ON PORTABLE O2, 4L NC. PT MOVED ON PORTABLE BEDSIDE MONITOR. BELONGINGS CHECKED, RX, CHART AND SBAR BROUGHT WITH PATIENT. PT PLACED ON TELE BOX. PT ENDORSED IN STABLE CONDITION.
--- NOTE | 2022-02-06 19:00 | NUR ---
PSYCHIATRIC NURSING ASSISTANT CLOSING NOTES PATIENT LAYING IN BED, A/O X 0, JEVITY 1.2 HERACLIO INFUSING VIA G-TUBE @ 55 ML/HR, L AC # 20 G SL CLEAN, INTACT, AND FLUSHING WELL. TELE MONITOR IN PLACE READING SR. BILATERAL SOFT WRIST RESTRAINTS IN PLACE WITH CIRCULATION, MOTOR FUNCTION, AND SENSATION IN PLACE DISTALLY X 2. PATIENT WITH 4 LPM O2 VIA CANNULA. HOB ELEVATED FOR ASPIRATION PRECAUTIONS. SAFETY MEASURES IN PLACE: BED IN LOWEST LOCKED POSITION, SIDE RAILS UP X 2, CALL LIGHT WITHIN REACH. ALL NEEDS MET. WILL ENDORSE TO BATCH UNIT TREATER FOR MAKENNA.
--- NOTE | 2022-02-06 19:15 | NUR ---
SALES MERCHANDISING SPECIALIST OPENING NOTES RECEIVED PATIENT IN BED; AWAKE, A/O X1, CONFUSED. O2 INHALATION @ 4LPM VIA NASAL CANNULA; WELL TOLERATED. BREATHING EVEN AND NONLABORED. NOT IN ANY FORM OF RESPIRATORY DISTRESS. DENIES ANY PAIN OR DISCOMFORT OF THIS TIME. ON TELEMETRY MONITORING SHOWING A FIB. WITH KOENIG CATHETER IN PLACE ATTACHED TO UROBAG DRAINING TO CLEAR YELLOW URINE. ON GTUBE FEEDING JEVITY 1.2 HERACLIO INFUSING @ 55 ML/HR. WITH BILATERAL SOFT WRIST RESTRAINTS IN PLACE; WITH GOOD CIRCULATION, SKIN WNL. SAFETY MEASURES IMPLEMENTED: HEAD OF BED ELEVATED, CALL LIGHT AND TABLE WITHIN REACH, SIDE RAILS UP X2, BED IN LOWEST LOCKED POSITION. WILL CONTINUE TO MONITOR
[2022-02-06] MEDS ORDERED: DEXTROSE 50%-WATER 50 ML DISP.SYRIN IV PRN (19:30)
[2022-02-06] MEDS: DOXAZOSIN MESYLATE (1 MG) 1 MG TABLET GT SCH (22:00)
[2022-02-06] MEDS: BLOOD SUGAR DIAGNOSTIC 1 EACH STRIP IN SCH (22:42)
[2022-02-06] MEDS: INSULIN REGULAR, HUMAN 100 UNIT/ML 3 ML VIAL SQ PRN (23:08)
--- NOTE | 2022-02-06 23:19 | NUR ---
ELECTRIC BATH ATTENDANT OPENING NOTES RECEIVED REPORT FROM ANA SIU; WILL CONT PLAN OF CARE
--- NOTE | 2022-02-06 23:22 | NUR ---
WIRE TESTER NOTE PATIENT ENDORSED TO ANA RAMON FOR MAKENNA.
[2022-02-07] MEDS: IPRATROPIUM NEB FS 0.5 MG/2.5 ML AMPUL.NEB NEB SCH ×4 (01:48→20:22)
[2022-02-07] MEDS: ALBUTEROL FS 2.5 MG/0.5 ML VIAL.NEB NEB SCH ×4 (01:48→20:22)
[2022-02-07] MEDS: PIPERACILLIN /TAZOBACTAM 3.375 G in IV D5W 100 ML IV SCH ×3 (04:07→21:06)
[2022-02-07] MEDS: VALPROIC ACID 250 MG/5 ML UDC GT SCH ×3 (04:09→21:08)
[2022-02-07] MEDS: METOCLOPRAMIDE HCL 10 MG/10 ML UDC GT SCH ×3 (04:09→21:08)
[2022-02-07] MEDS: methylPREDNISolone SOD SUCC 125 MG/2ML VIAL IV SCH ×3 (04:09→21:08)
[2022-02-07] MEDS: INSULIN REGULAR, HUMAN 100 UNIT/ML 3 ML VIAL SQ PRN ×2 (06:30→21:19)
[2022-02-07] MEDS: BLOOD SUGAR DIAGNOSTIC 1 EACH STRIP IN SCH ×4 (06:30→21:14)
--- NOTE | 2022-02-07 06:36 | NUR ---
ACCOUNTS PAYABLES CLERK CLOSING NOTES PATIENT RESTING IN BED COMFORTABLY, A/OX1, CONFUSED; SOMETIMES YELLS IN IVORIAN BUT ABLE TO SPEAK MARTINIQUAIS; BREATHING EVEN AND UNLABORED; TOLERATING 4LPM VIA NASAL CANULA WELL; TELE MONITOR CONTROLLED A.FIB, 48BPM - 60BPM; G-TUBE FEEDING NOTED, TOLERATING FEEDING WELL, @ 55BPM; L AC #20g, S/L; PATENT, FLUSHING WELL; NO S/S OF REDNESS OR INFILTRATION NOTED; BILATERAL SOFT WRIST RESTRAINTS APPLIED, SKIN INTACT; ALL NEEDS RENDERED; SAFETY PRECAUTIONS IMPLEMENTED; BED LOCKED IN LOW POSITION; SIDE RAILSX3, CALL LIGHT WITHIN REACH; WILL ENDORSE MAKENNA TO ONCOMING SHIFT
--- NOTE | 2022-02-07 07:30 | NUR ---
DINKEY ENGINE FIRER/FIREMAN OPENING NOTES RECEIVED PATIENT IN BED; AWAKE, A/O X1, CONFUSED. O2 INHALATION @ 4LPM VIA NASAL CANNULA; WELL TOLERATED. BREATHING EVEN AND NONLABORED. NOT IN ANY FORM OF RESPIRATORY DISTRESS. ON TELEMETRY MONITORING CURRENTLY READING SINUS BRADYCARDIA AT 56BPM. WITH KOENIG CATHETER IN PLACE ATTACHED TO UROBAG DRAINING TO CLEAR YELLOW URINE. ON GTUBE FEEDING JEVITY 1.2 HERACLIO INFUSING @ 55 ML/HR. WITH BILATERAL SOFT WRIST RESTRAINTS IN PLACE; WITH GOOD CIRCULATION, SKIN WNL. SAFETY MEASURES IMPLEMENTED: HEAD OF BED ELEVATED, CALL LIGHT AND TABLE WITHIN REACH, SIDE RAILS UP X2, BED IN LOWEST LOCKED POSITION. WILL CONTINUE TO MONITOR
[2022-02-07] MEDS: BUDESONIDE RESPULE INH 0.5 MG/2 ML AMPUL.NEB NEB SCH ×2 (07:59→20:22)
[2022-02-07] MEDS: SENNOSIDES 8.6 MG TABLET GT SCH ×2 (09:06→17:41)
[2022-02-07] MEDS: METHIMAZOLE (5MG) 5 MG TABLET GT SCH ×2 (09:06→17:41)
[2022-02-07] MEDS: LEVETIRACETAM SOL (5 ML) 100 MG/ML UDC GT SCH ×2 (09:06→21:07)
[2022-02-07] MEDS: ASPIRIN 81 MG TAB.CHEW PO SCH (09:06)
[2022-02-07] MEDS: OLANZAPINE 2.5 MG TABLET GT SCH ×3 (09:06→17:41)
[2022-02-07] MEDS: busPIRone 5 MG TABLET GT SCH ×3 (09:06→17:41)
[2022-02-07] MEDS: PANTOPRAZOLE 40 MG TABLET.DR PO SCH (09:06)
[2022-02-07] MEDS: CALCIUM CARB 250MG /VITAMIN D 1 UDTAB GT SCH (09:06)
[2022-02-07] MEDS: APIXABAN 5 MG TABLET GT SCH ×2 (09:08→21:06)
[2022-02-07 11:23] LABS: CALCIUM, SERUM 8.9 mg/dL (8.5-10.1); CARBON DIOXIDE 31 mmol/L (21-32); CHLORIDE 102 mmol/L (98-107); CREATININE 1.6 mg/dL (0.6-1.3); GLUCOSE 139 mg/dL (74-106); POTASSIUM 4.3 mmol/L (3.5-5.1); SODIUM SERUM 138 mmol/L (136-145); UREA NITROGEN, BLOOD 51 mg/dL (7-18)
[2022-02-07] MEDS: VANCOMYCIN 1.25 GM in IV D5W 250 ML IV SCH (12:29)
[2022-02-07 12:38] LABS: BASOPHILS % (AUTO) 0.1 % (0.0-2.0); HEMATOCRIT 33 % (39-51); HEMOGLOBIN 10.7 g/dL (13.5-17.5); LYMPHOCYTES # (AUTO) 0.7 K/uL (0.8-4.8); LYMPHOCYTES % (AUTO) 3.2 % (20.0-44.0); MEAN CORPUSCULAR HGB CONC 33 g/dl (31.0-36.0); MEAN CORPUSCULAR VOLUME 93 fL (80-96); MONOCYTES # (AUTO) 0.3 K/uL (0.1-1.30); MONOCYTES % (AUTO) 1.4 % (2.0-12.0); NEUTROPHILS # (AUTO) 19.6 K/uL (1.8-8.9); NEUTROPHILS % (AUTO) 95.3 % (43.0-81.0); PLATELET COUNT (AUTO) 464 K/uL (150-450); RED BLOOD CELL COUNT(AUTO) 3.54 MIL/uL (4.5-6.0); WHITE BLOOD COUNT (AUTO) 20.6 K/uL (4.3-11.0)
[2022-02-07 13:01] LABS: ALBUMIN 2.1 g/dL (3.4-5.0); BILIRUBIN,DIRECT 0.1 mg/dL (0.0-0.2); BILIRUBIN,TOTAL 0.2 mg/dL (0.2-1.0); MAGNESIUM 2.5 mg/dL (1.8-2.4); PHOSPHORUS 3.2 mg/dL (2.5-4.9); TOTAL PROTEIN, SERUM 8.2 g/dL (6.4-8.2)
[2022-02-07 13:12] LABS: THYROID STIMULATING HORMONE 1.223 uIU/mL (0.358-3.74)
--- NOTE | 2022-02-07 19:07 | NUR ---
TOOL ROOM ATTENDANT CLOSING NOTES PATIENT IN BED; AWAKE, A/O X1, CONFUSED. O2 INHALATION @ 4LPM VIA NASAL CANNULA; WELL TOLERATED. BREATHING EVEN AND NONLABORED. NOT IN ANY FORM OF RESPIRATORY DISTRESS. ON TELEMETRY MONITORING CURRENTLY READING SINUS BRADYCARDIA AT 53BPM. WITH KOENIG CATHETER IN PLACE ATTACHED TO UROBAG DRAINING TO CLEAR YELLOW URINE AT 550ML. ON GTUBE FEEDING JEVITY 1.2 HERACLIO INFUSING @ 55 ML/HR. WITH BILATERAL SOFT WRIST RESTRAINTS IN PLACE; WITH GOOD CIRCULATION, SKIN WNL. DUE MEDS GIVEN. SAFETY MEASURES IMPLEMENTED: HEAD OF BED ELEVATED, CALL LIGHT AND TABLE WITHIN REACH, SIDE RAILS UP X2, BED IN LOWEST LOCKED POSITION. WILL ENDORSE TO NEXT SHIFT FOR MAKENNA.
--- NOTE | 2022-02-07 19:39 | NUR ---
STEAM METER READER OPENING NOTES PATIENT RECEIVED RESTING IN BED COMFORTABLY, A/OX1, CONFUSED; SOMETIMES YELLS IN GREENLANDIC BUT ABLE TO SPEAK ALBANIAN; BREATHING EVEN AND UNLABORED; TOLERATING 4LPM VIA NASAL CANULA WELL; TELE MONITOR CONTROLLED A.FIB, 48BPM - 60BPM; G-TUBE FEEDING NOTED, TOLERATING FEEDING WELL, @ 55BPM; L AC #20g, S/L; PATENT, FLUSHING WELL; NO S/S OF REDNESS OR INFILTRATION NOTED; BILATERAL SOFT WRIST RESTRAINTS APPLIED, SKIN INTACT; SAFETY PRECAUTIONS IMPLEMENTED; BED LOCKED IN LOW POSITION; SIDE RAILSX3, CALL LIGHT WITHIN REACH; WILL CONTINUE PLAN OF CARE
[2022-02-07 20:00] VITALS: BP 119/85
[2022-02-07] MEDS: DOXAZOSIN MESYLATE (1 MG) 1 MG TABLET GT SCH (21:23)
[2022-02-07] MEDS: JEVITY CAL GT PRN (23:01)
[2022-02-08] VITALS: BP 116/65
[2022-02-08] MEDS: ALBUTEROL FS 2.5 MG/0.5 ML VIAL.NEB NEB SCH ×4 (01:38→20:08)
[2022-02-08] MEDS: IPRATROPIUM NEB FS 0.5 MG/2.5 ML AMPUL.NEB NEB SCH ×4 (01:38→20:08)
[2022-02-08 04:00] VITALS: BP 110/56
[2022-02-08] MEDS: PIPERACILLIN /TAZOBACTAM 3.375 G in IV D5W 100 ML IV SCH ×3 (04:11→20:36)
[2022-02-08] MEDS: VALPROIC ACID 250 MG/5 ML UDC GT SCH ×3 (04:11→20:32)
[2022-02-08] MEDS: METOCLOPRAMIDE HCL 10 MG/10 ML UDC GT SCH ×3 (04:11→20:32)
[2022-02-08] MEDS: methylPREDNISolone SOD SUCC 125 MG/2ML VIAL IV SCH ×3 (04:12→20:32)
[2022-02-08] MEDS: BLOOD SUGAR DIAGNOSTIC 1 EACH STRIP IN SCH ×4 (06:35→21:46)
[2022-02-08] MEDS: INSULIN REGULAR, HUMAN 100 UNIT/ML 3 ML VIAL SQ PRN (06:36)
--- NOTE | 2022-02-08 06:50 | NUR ---
SALES STRATEGY MANAGER CLOSING NOTES PATIENT RESTING IN BED COMFORTABLY, A/OX1, CONFUSED; SOMETIMES YELLS IN MACANESE BUT ABLE TO SPEAK SCOTTISH; BREATHING EVEN AND UNLABORED; TOLERATING 4LPM VIA NASAL CANULA WELL; TELE MONITOR CONTROLLED A.FIB 60BPM; G-TUBE FEEDING NOTED, TOLERATING FEEDING WELL, @ 55BPM; L AC #20g, S/L; PATENT, FLUSHING WELL; NO S/S OF REDNESS OR INFILTRATION NOTED; BILATERAL SOFT WRIST RESTRAINTS APPLIED, SKIN INTACT; ALL NEEDS RENDERED; SAFETY PRECAUTIONS IMPLEMENTED; BED LOCKED IN LOW POSITION; SIDE RAILSX3, CALL LIGHT WITHIN REACH; WILL ENDORSE MAKENNA TO ONCOMING SHIFT
[2022-02-08 07:18] LABS: BASOPHILS % (AUTO) 0.7 % (0.0-2.0); EOSINOPHILS % (AUTO) 2.3 % (0.0-6.0); HEMATOCRIT 35 % (39-51); HEMOGLOBIN 11.6 g/dL (13.5-17.5); LYMPHOCYTES # (AUTO) 0.4 K/uL (0.8-4.8); LYMPHOCYTES % (AUTO) 10.2 % (20.0-44.0); MEAN CORPUSCULAR HGB CONC 33 g/dl (31.0-36.0); MEAN CORPUSCULAR VOLUME 93 fL (80-96); MONOCYTES # (AUTO) 0.6 K/uL (0.1-1.30); MONOCYTES % (AUTO) 13.6 % (2.0-12.0); NEUTROPHILS % (AUTO) 73.2 % (43.0-81.0); PLATELET COUNT (AUTO) 161 K/uL (150-450); RED BLOOD CELL COUNT(AUTO) 3.78 MIL/uL (4.5-6.0); WHITE BLOOD COUNT (AUTO) 4.1 K/uL (4.3-11.0)
--- NOTE | 2022-02-08 07:27 | NUR ---
RN NOTE PT RECEIVED ASLEEP IN BED, RESPONSIVE TO STIMULI. CONT IN O2 @4L VIA NC, PT NOT IN RESPI DISTRESS. KOENIG CATH IN PLACE DRAINING WELL. GT FEEDING JEVITY 1.2 @55CC/HR. HOB ELEVATED, ASPIRATION PREC MAINTAINED. PT IV ACCESS ON LAC G20 WITH NO IVF. SAFETY MEASURES FOLLOWED. WILL CONTINUE TO MONITOR.
[2022-02-08 07:28] LABS: CALCIUM, SERUM 8.7 mg/dL (8.5-10.1); CARBON DIOXIDE 38 mmol/L (21-32); CHLORIDE 102 mmol/L (98-107); CREATININE 2.2 mg/dL (0.6-1.3); GLUCOSE 94 mg/dL (74-106); POTASSIUM 3.3 mmol/L (3.5-5.1); SODIUM SERUM 141 mmol/L (136-145); UREA NITROGEN, BLOOD 60 mg/dL (7-18)
[2022-02-08] MEDS: OLANZAPINE 2.5 MG TABLET GT SCH ×3 (08:07→16:27)
[2022-02-08] MEDS: APIXABAN 5 MG TABLET GT SCH ×2 (08:07→20:32)
[2022-02-08] MEDS: CALCIUM CARB 250MG /VITAMIN D 1 UDTAB GT SCH (08:07)
[2022-02-08] MEDS: ASPIRIN 81 MG TAB.CHEW PO SCH (08:07)
[2022-02-08] MEDS: busPIRone 5 MG TABLET GT SCH ×3 (08:07→16:27)
[2022-02-08] MEDS: METHIMAZOLE (5MG) 5 MG TABLET GT SCH ×2 (08:08→16:27)
[2022-02-08] MEDS: LEVETIRACETAM SOL (5 ML) 100 MG/ML UDC GT SCH ×2 (08:08→20:32)
[2022-02-08] MEDS: SENNOSIDES 8.6 MG TABLET GT SCH ×2 (08:08→16:27)
[2022-02-08] MEDS: PANTOPRAZOLE 40 MG TABLET.DR PO SCH (08:08)
[2022-02-08] MEDS: BUDESONIDE RESPULE INH 0.5 MG/2 ML AMPUL.NEB NEB SCH ×2 (08:14→20:08)
[2022-02-08] MEDS ORDERED: POTASSIUM CHLORIDE 20 MEQ POWDER PACKET NG SCH (09:00)
--- NOTE | 2022-02-08 09:35 | NUR ---
rt note stat abg done @0975. RT was not notified in time frame of stat order.
[2022-02-08 09:43] LABS: ABG BASE EXCESS 3.3 mmol/L; ABG OXYGEN SATURATION 96.8 % (92.0-98.5); ABG PCO2 44.6 mmHg (35.0-45.0); ABG PH 7.421 (7.350-7.450); ABG PO2 89.3 mmHg (75.0-100.0); AaDO2 108.4 mmHg; COHb 0.9 % (0.5-1.5); MetHb 0.1 % (0.0-1.5); O2Hb 95.8 % (94.0-97.0); SITE, ABG Right Radial; VENT MODE, BG NASAL CANNULA
[2022-02-08] MEDS ORDERED: POTASSIUM CL. PREMIX PERIPHER. 50 ML IV SCH (11:00)
[2022-02-08] MEDS ORDERED: VANCOMYCIN 0.75 GM in IV D5W 250 ML IV SCH (16:00)
[2022-02-08] MEDS ORDERED: VANCOMYCIN 1 GM in IV D5W 250ml IV SCH (16:00)
[2022-02-08] MEDS ORDERED: IV NS 0.9% 1,000 ML IV ONE (18:00)
--- NOTE | 2022-02-08 18:00 | NUR ---
RN NOTE PT NOTED AGITATED, YELLING AND BEING AGGRESSIVE TOWARS STAFF. V/S STABLE WITH O2 SAT OF 98 IN 4L O2 VIA NC. PMD MADE AWARE. WITH TEL ORDER 1 DOSE OF HALDOL 0.5MG IM. WILL CONT TO MONITOR.
--- NOTE | 2022-02-08 18:59 | NUR ---
RN NOTE PT LYING IN BED, AWAKE ALERT AND RESPONSIVE TO STIMULI. CONT IN O2 @4L VIA NC, PT NOT IN RESPI DISTRESS. KOENIG CATH IN PLACE DRAINING WELL. GT FEEDING JEVITY 1.2 @55CC/HR. HOB ELEVATED, ASPIRATION PREC MAINTAINED. PT IV ACCESS ON LAC G20 WITH NO IVF. SAFETY MEASURES FOLLOWED. DUE MEDICATIONS TAKEN. AM/PM CARE DONE. WILL CONTINUE TO MONITOR.
[2022-02-08] MEDS ORDERED: HALOPERIDOL LACTATE INJ 5 MG/ML VIAL IM ONE (19:00)
--- NOTE | 2022-02-08 19:21 | NUR ---
HVAC ENGINEERING TECHNICIAN OPENING NOTES PATIENT RECEIVED RESTING IN BED COMFORTABLY, A/OX1, CONFUSED; YELLING IN HEBREW BUT ABLE TO SPEAK BULGARIAN; PER AM SHIFT, HALOPERIDOL IM ADMINISTERED 1800. BREATHING EVEN AND UNLABORED; TOLERATING 4LPM VIA NASAL CANULA WELL; TELE MONITOR CONTROLLED A.FIB, G-TUBE FEEDING NOTED, TOLERATING FEEDING WELL, @ 55BPM; L AC #20g, S/L; PATENT, FLUSHING WELL; NO S/S OF REDNESS OR INFILTRATION NOTED; BILATERAL MITTENS APPLIED, SKIN INTACT; SAFETY PRECAUTIONS IMPLEMENTED; BED LOCKED IN LOW POSITION; SIDE RAILSX3, CALL LIGHT WITHIN REACH; WILL CONTINUE PLAN OF CARE
[2022-02-08 20:00] VITALS: BP 138/68
[2022-02-08] MEDS: DOXAZOSIN MESYLATE (1 MG) 1 MG TABLET GT SCH (21:47)
[2022-02-09] MEDS: IPRATROPIUM NEB FS 0.5 MG/2.5 ML AMPUL.NEB NEB SCH ×4 (01:30→20:16)
[2022-02-09] MEDS: ALBUTEROL FS 2.5 MG/0.5 ML VIAL.NEB NEB SCH ×4 (01:30→20:16)
--- NOTE | 2022-02-09 03:20 | NUR ---
SCRAP DROP CRANE OPERATOR NOTES ENDORSED MAKENNA TO ANA LARA
[2022-02-09 04:00] VITALS: BP 140/56
[2022-02-09] MEDS: METOCLOPRAMIDE HCL 10 MG/10 ML UDC GT SCH ×3 (05:10→20:34)
[2022-02-09] MEDS: PIPERACILLIN /TAZOBACTAM 3.375 G in IV D5W 100 ML IV SCH ×3 (05:10→21:20)
[2022-02-09] MEDS: VALPROIC ACID 250 MG/5 ML UDC GT SCH ×3 (05:11→20:34)
[2022-02-09] MEDS: methylPREDNISolone SOD SUCC 125 MG/2ML VIAL IV SCH ×2 (05:11→13:21)
[2022-02-09] MEDS: JEVITY CAL GT PRN (06:35)
[2022-02-09] MEDS: BLOOD SUGAR DIAGNOSTIC 1 EACH STRIP IN SCH ×4 (06:35→21:58)
[2022-02-09] MEDS: INSULIN REGULAR, HUMAN 100 UNIT/ML 3 ML VIAL SQ PRN ×4 (06:36→21:58)
--- NOTE | 2022-02-09 07:02 | NUR ---
RN CLOSING NOTE PATIENT AWAKE IN BED. A/0X1. NO S/S OF DISTRESS, BREATHING WITHOUT DIFFICULTY ON ROOM AIR. LAC#20 SL INTACT AND PATENT. TELE READS AFIB CONTROLLED SB 41. JEVITY 1.2 @55 ML/HR. SAFETY MEASURES IN PLACE: BED LOCKED AND AT LOWEST POSITION, RAILS UP X2, CALL DUNN WITHIN REACH. WILL ENDORSE TO NEXT SHIFT FOR MAKENNA. Addendum: 02/09/22 at 0710 by JANE BLANDON RN CORRECTION: BREATHING WITHOUT DIFFICULTY ON 4L NC.
--- NOTE | 2022-02-09 07:18 | NUR ---
GOLF RANGE ATTENDANT OPENING NOTES PATIENT RECEIVED RESTING IN BED COMFORTABLY, A/OX1, CONFUSED; PATIENT ON OXYGEN AT 4LPM VIA NASAL CANULA WITH BREATHING EVEN AND UNLABORED; PATIENT ON TELE MONITOR CONTROLLED A.FIB AND SINUS FELIX WHEN SLEEPING AT 41. PATIENT WITH G-TUBE FEEDING ON JEVITY 1.2 AT 55ML/HR, TOLERATING FEEDING WELL. WITH IV ACCESS ON L AC #20g ON SALINE LOCK, PATENT AND INTACT.WITH BILATERAL RESTRAINTS WITH GOOD CIRCUALTION AND NO COMPLAINTS OF DISCOMFORT AT THIS TIME. SAFETY PRECAUTIONS IMPLEMENTED WITH BED LOCKED IN LOW POSITION; SIDE RAILSX3, CALL LIGHT WITHIN REACH; WILL CONTINUE PLAN OF CARE
[2022-02-09] MEDS: BUDESONIDE RESPULE INH 0.5 MG/2 ML AMPUL.NEB NEB SCH ×2 (07:52→20:16)
[2022-02-09] MEDS: APIXABAN 5 MG TABLET GT SCH ×2 (08:35→20:36)
[2022-02-09] MEDS: SENNOSIDES 8.6 MG TABLET GT SCH ×2 (08:35→17:31)
[2022-02-09] MEDS: ASPIRIN 81 MG TAB.CHEW PO SCH (08:35)
[2022-02-09] MEDS: OLANZAPINE 2.5 MG TABLET GT SCH ×3 (08:35→17:31)
[2022-02-09] MEDS: LEVETIRACETAM SOL (5 ML) 100 MG/ML UDC GT SCH ×2 (08:36→20:34)
[2022-02-09] MEDS: METHIMAZOLE (5MG) 5 MG TABLET GT SCH ×2 (08:36→17:31)
[2022-02-09] MEDS: CALCIUM CARB 250MG /VITAMIN D 1 UDTAB GT SCH (08:36)
[2022-02-09] MEDS: busPIRone 5 MG TABLET GT SCH ×3 (08:36→17:31)
[2022-02-09] MEDS: PANTOPRAZOLE 40 MG/PACK PACK GT SCH (08:36)
[2022-02-09 10:06] LABS: CALCIUM, SERUM 8.6 mg/dL (8.5-10.1); CARBON DIOXIDE 32 mmol/L (21-32); CHLORIDE 104 mmol/L (98-107); CREATININE 1.5 mg/dL (0.6-1.3); GLUCOSE 154 mg/dL (74-106); POTASSIUM 4.7 mmol/L (3.5-5.1); SODIUM SERUM 139 mmol/L (136-145); UREA NITROGEN, BLOOD 50 mg/dL (7-18)
[2022-02-09] MEDS ORDERED: methylPREDNISolone SOD SUCC 125 MG/2ML VIAL IV SCH (14:00)
[2022-02-09] MEDS: VANCOMYCIN 0.75 GM in IV D5W 250 ML IV SCH (17:32)
--- NOTE | 2022-02-09 18:52 | NUR ---
INTERACTIVE PRODUCER CLOSING NOTES PATIENT RESTING IN BED COMFORTABLY, A/OX1, CONFUSED; PATIENT ON OXYGEN AT 4LPM VIA NASAL CANULA WITH BREATHING EVEN AND UNLABORED; PATIENT ON TELE MONITOR CONTROLLED A.FIB AND SINUS FELIX WHEN SLEEPING AT 57. PATIENT WITH G-TUBE FEEDING ON JEVITY 1.2 AT 55ML/HR, TOLERATING FEEDING WELL. WITH IV ACCESS ON L AC #20g ON SALINE LOCK, PATENT AND INTACT.WITH BILATERAL RESTRAINTS WITH GOOD CIRCULATION AND NO COMPLAINTS OF DISCOMFORT AT THIS TIME. SAFETY PRECAUTIONS IN PLACE WITH BED LOCKED IN LOW POSITION; SIDE RAILSX3, CALL LIGHT WITHIN REACH; WILL ENSORSE TO NIGHT NURSE FOR CONTINUITY OF CARE.
--- NOTE | 2022-02-09 19:38 | NUR ---
DRY PRIMER POWDER BLENDER OPENING RECEIVED PATIENT IN BED, SCREAMING PATIENT'S BASELINE. NO S/S OF APPARENT DISTRESS ON 4LPM OF O2 VIA NC. UNABLE TO TELL IF PATIENT IN PAIN. L.AC #20G IN PLACE SALINE LOCK. TELE MONITOR READING SB AT THIS TIME WITH 48BPM. MITTENS IN PLACE AND SITTER ON BEDSIDE. JG-TUBE RUNNING JEVITY @55CC/HR. KOENIG CATH DRAINING CLEAR DARK YELLOW URINE. SAFETY IN PLACE. WILL CONTINUE WITH PATIENT'S PLAN OF CARE.
[2022-02-09 19:52] VITALS: BP 145/70
[2022-02-09] MEDS: DOXAZOSIN MESYLATE (1 MG) 1 MG TABLET GT SCH (21:49)
[2022-02-10] VITALS: BP 145/70
[2022-02-10] MEDS: IPRATROPIUM NEB FS 0.5 MG/2.5 ML AMPUL.NEB NEB SCH ×4 (01:25→19:30)
[2022-02-10] MEDS: ALBUTEROL FS 2.5 MG/0.5 ML VIAL.NEB NEB SCH ×4 (01:25→19:30)
--- NOTE | 2022-02-10 07:20 | NUR ---
GOPHERMAN OPENING NOTES PATIENT RESTING IN BED COMFORTABLY, A/OX1, CONFUSED; PATIENT ON OXYGEN AT 4LPM VIA NASAL CANULA WITH BREATHING EVEN AND UNLABORED; PATIENT ON TELE MONITOR CONTROLLED A.FIB 67. PATIENT WITH G-TUBE FEEDING ON JEVITY 1.2 AT 55ML/HR, TOLERATING FEEDING WELL. WITH IV ACCESS ON L AC #20g ON SALINE LOCK, PATENT AND INTACT.WITH BILATERAL RESTRAINTS CHECKED WITH GOOD CIRCULATION AND NO COMPLAINTS OF DISCOMFORT AT THIS TIME. SAFETY PRECAUTIONS IN PLACE WITH BED LOCKED IN LOW POSITION; SIDE RAILSX3, CALL LIGHT WITHIN REACH; WILL CONTINUE TO MONITOR ACCORDINGLY
[2022-02-10 08:00] VITALS: BP 149/73
[2022-02-10] MEDS: BUDESONIDE RESPULE INH 0.5 MG/2 ML AMPUL.NEB NEB SCH ×2 (08:00→19:30)
[2022-02-10] MEDS: BLOOD SUGAR DIAGNOSTIC 1 EACH STRIP IN SCH ×2 (08:26→12:49)
[2022-02-10 08:27] LABS: BASOPHILS % (AUTO) 0.1 % (0.0-2.0); HEMATOCRIT 33 % (39-51); HEMOGLOBIN 10.7 g/dL (13.5-17.5); LYMPHOCYTES % (AUTO) 29.5 % (20.0-44.0); MEAN CORPUSCULAR HGB CONC 33 g/dl (31.0-36.0); MEAN CORPUSCULAR VOLUME 93 fL (80-96); MONOCYTES # (AUTO) 0.6 K/uL (0.1-1.30); MONOCYTES % (AUTO) 9.4 % (2.0-12.0); NEUTROPHILS # (AUTO) 4.1 K/uL (1.8-8.9); PLATELET COUNT (AUTO) 325 K/uL (150-450); WHITE BLOOD COUNT (AUTO) 6.7 K/uL (4.3-11.0)
[2022-02-10] MEDS: METHIMAZOLE (5MG) 5 MG TABLET GT SCH ×2 (08:33→17:19)
[2022-02-10] MEDS: LEVETIRACETAM SOL (5 ML) 100 MG/ML UDC GT SCH (08:33)
[2022-02-10] MEDS: busPIRone 5 MG TABLET GT SCH ×3 (08:33→17:19)
[2022-02-10] MEDS: SENNOSIDES 8.6 MG TABLET GT SCH ×2 (08:33→17:19)
[2022-02-10] MEDS: OLANZAPINE 2.5 MG TABLET GT SCH ×3 (08:33→17:19)
[2022-02-10] MEDS: CALCIUM CARB 250MG /VITAMIN D 1 UDTAB GT SCH (08:33)
[2022-02-10] MEDS: ASPIRIN 81 MG TAB.CHEW PO SCH (08:33)
[2022-02-10] MEDS: PANTOPRAZOLE 40 MG/PACK PACK GT SCH (08:33)
[2022-02-10] MEDS: APIXABAN 5 MG TABLET GT SCH (08:35)
[2022-02-10] MEDS ORDERED: methylPREDNISolone SOD SUCC 125 MG/2ML VIAL IV SCH (09:00)
[2022-02-10 09:22] LABS: CALCIUM, SERUM 8.4 mg/dL (8.5-10.1); CREATININE 1.3 mg/dL (0.6-1.3)
[2022-02-10 12:00] VITALS: BP 127/63
[2022-02-10] MEDS: INSULIN REGULAR, HUMAN 100 UNIT/ML 3 ML VIAL SQ PRN (12:51)
[2022-02-10] MEDS: PIPERACILLIN /TAZOBACTAM 3.375 G in IV D5W 100 ML IV SCH (12:56)
[2022-02-10] MEDS: METOCLOPRAMIDE HCL 10 MG/10 ML UDC GT SCH (12:57)
[2022-02-10] MEDS: VALPROIC ACID 250 MG/5 ML UDC GT SCH (12:57)
[2022-02-10 16:00] VITALS: BP 135/80
[2022-02-10] MEDS: VANCOMYCIN 0.75 GM in IV D5W 250 ML IV SCH (17:20)
--- NOTE | 2022-02-10 18:05 | NUR ---
MS GEOPHYSICAL PROSPECTING PERMIT AGENT NOTES PATIENT DISCHARGE TO [facility] WITH STABLE VITAL SIGNS. DISCHARGE REPORT GIVEN TO JAYDA PEREZ. NO ACUTE DISTRESS NOTED. BREATHING UNLABORED. ON O2 @4 LPM VIA NASAL CANULA SATURATING AT 98%. NO FACIAL GRIMACING NOTED. DISCHARGE PAPERS GIVEN TO THE EMT PERSONNEL . IV ACCESS REMOVED, NO REDNESS, NO BLEEDING, NO SWELLING NOTED. SKIN IS INTACT. KOENIG CATHETER INTACT AND PATENT DRAINING CLEAR YELLOW URINE. G TUBE PATENT AND INTACT, CLAMPED FOR TRANSPORT . PICKED UP VIA AMBULANCE IN A GURNEY ACCOMPANIED BY 2 EMT PERSONNEL IN STABLE CONDITION
== END 2022-02-11 | DRG 871 ==
LOC: ER 20:55 → ICU 23:12 → TELE 02-06 17:21
PROVIDERS: ADMIT Student in an Organized Health Care Education/Training Program; ATTEND Internal Medicine
PROC: 5A09357 Assistance with Respiratory Ventilation, Less than 24 Consecutive Hours, Continuous Positive Airway Pressure (ICD-10-PCS; principal; 2022-02-04)
DX: A41.9 Sepsis, unspecified organism (principal); E43 Unspecified severe protein-calorie malnutrition; G93.41 Metabolic encephalopathy; I21.4 Non-ST elevation (NSTEMI) myocardial infarction; J18.9 Pneumonia, unspecified organism; N17.0 Acute kidney failure with tubular necrosis; I50.33 Acute on chronic diastolic (congestive) heart failure; J96.21 Acute and chronic respiratory failure with hypoxia; E87.1 Hypo-osmolality and hyponatremia; D68.59 Other primary thrombophilia; I13.0 Hypertensive heart and chronic kidney disease with heart failure and stage 1 through stage 4 chronic kidney disease, or unspecified chronic kidney disease; E87.2 Acidosis; J44.0 Chronic obstructive pulmonary disease with (acute) lower respiratory infection; D75.839 Thrombocytosis, unspecified; D63.8 Anemia in other chronic diseases classified elsewhere; E03.9 Hypothyroidism, unspecified; E05.90 Thyrotoxicosis, unspecified without thyrotoxic crisis or storm; E11.22 Type 2 diabetes mellitus with diabetic chronic kidney disease; E78.5 Hyperlipidemia, unspecified; E86.0 Dehydration; E88.09 Other disorders of plasma-protein metabolism, not elsewhere classified; F03.90 Unspecified dementia, unspecified severity, without behavioral disturbance, psychotic disturbance, mood disturbance, and anxiety; F43.10 Post-traumatic stress disorder, unspecified; I25.10 Atherosclerotic heart disease of native coronary artery without angina pectoris; I48.91 Unspecified atrial fibrillation; K70.30 Alcoholic cirrhosis of liver without ascites; F10.10 Alcohol abuse, uncomplicated; M81.0 Age-related osteoporosis without current pathological fracture; N18.9 Chronic kidney disease, unspecified; N40.0 Benign prostatic hyperplasia without lower urinary tract symptoms; R13.10 Dysphagia, unspecified; Z87.820 Personal history of traumatic brain injury; Z79.01 Long term (current) use of anticoagulants; Z79.51 Long term (current) use of inhaled steroids; Z79.899 Other long term (current) drug therapy; Z93.1 Gastrostomy status; G89.29 Other chronic pain; K21.9 Gastro-esophageal reflux disease without esophagitis; M19.90 Unspecified osteoarthritis, unspecified site; R29.6 Repeated falls; Y95 Nosocomial condition; Z86.16 Personal history of COVID-19; Z82.49 Family history of ischemic heart disease and other diseases of the circulatory system
CPT/HCPCS: 36415; 36600; 71045-TC; 80048-TC; 80076-TC; 80202-TC; 81001; 82533; 82803-TC; 82962-TC; 83605-TC; 83735-TC; 83880; 84100-TC; 84439-TC; 84443-TC; 84484-TC; 85025-TC; 85730-TC; 87040-TC; 87081-TC; 87086-TC; 93307-TC; 94762-TC; 94799-TC; 99082-TC; C9803; G0378; J1630; J1720; J1815; J1940; J1953; J2543; J2930; J3370; J3490; J7030; J7050; J7060; J8597